=== PATIENT | female | born 1955 | race Caucasian/White ===

== ENCOUNTER 2023-01-14 03:18 | Emergency (ER) | payer OTHER ==
--- OUTSIDE RECORDS SUMMARY | 2023-01-14 03:25 | XMS REPORT | Continuity of Care Document ---
:[address] [facility] t Address [address] [facility] [address] [place] [address] Care Team Providers Name Role Phone Jonh Michelle MD Primary Care Physician Troy Tripathi MD Attending Clinician AMBREEN_FARDESTINEY Attending Clinician Unavailable AMBREEN_SOPHIA Admitting Clinician Unavailable Payers Payer Name Policy Type Policy Number Effective Date Expiration Date S ource Problems Condition Condition Condition Status Onset Resolution Last Treating Co mments Source Name Details Category Date Date Treatment Clinician Date Hypothyroi Hypothyroi Problem Active 2017-0 [place] [facility] Hypertensi Hypertensi Problem Active 2018-0 [place] ve ve 805 da disorder Disorder 00:00: [facility] Allergies, Adverse Reactions, Alerts This patient has no known allergies or adverse reactions. Social History Social Habit Start Date Stop Date Quantity Comments Source Gender [facility] Sexual orientation [facility] History [facility]ism Alcohol Std Drinks Hospit al History [facility] Alcohol Binge Hospital Alcohol intake 2022-03-23 2022-03-23 Lifetime [facility] 00:00:00 00:00:00 non-drinker Hospital (finding) History of Social 2022-03-23 2022-03-[address] function 00:00:00 00:00:00 Hospital Tobacco use and 2022-03-23 2022-03-23 Smokeless [facility]ism exposure 00:00:00 00:00:00 tobacco non-user Hospital History SDDE 2019-08-07 2019-08-07 1 [facility] Alcohol Frequency 00:00:00 00:00:00 Hospita l Sex Ass[birth year] [facility] 00:00:00 00:00:00 Hospital Smoking Status Start Date Stop Date Source Never smoked tobacco [facility] Medications Ordered Filled Start Stop Current Ordering Indication Dosage Frequency Signature Comments Components Source Medication Medication Date Date Medication? Clinician (SIG) Name Name levothyroxi 2022-0 Yes 100ug QD Take 100 M ethodi ne 9-[address] (SYNTHROID) 10:44: mouth Hospi ta 100 mcg 10 daily. l tablet losartan 2022-0 Yes 25mg QD Take 25 mg Met hodi (COZAAR) 25 9-[address] MG tablet 10:44: daily. Hospit a 10 l atorvastati 2022-0 Yes 20mg QD Take 20 mg Methodi n (LIPITOR) 9-[address] 20 mg 10:44: daily. Hospita tablet 10 Default OP l ins cholecalcif 2022-0 Yes 1000U QD Take 1,000 Methodi kelly, 9-[address] vitamin D3, 10:44: mouth Hospi ta 25 mcg 10 daily. l (1,000 unit) capsule ascorbic 2022-0 Yes 500mg QD Take 500 Meth bobby acid, 9-[address] vitamin C, 10:44: mouth Hospit a (VITAMIN C) 10 daily. l 500 MG tablet levothyroxi 2022-0 Yes 100ug QD Take 100 M ethodi ne 9-[address] (SYNTHROID) 10:44: mouth Hospi ta 100 mcg 10 daily. l tablet losartan 2022-0 Yes 25mg QD Take 25 mg Met hodi (COZAAR) 25 9-[address] MG tablet 10:44: daily. Hospit a 10 l atorvastati 2022-0 Yes 20mg QD Take 20 mg Methodi n (LIPITOR) 9-[address] 20 mg 10:44: daily. Hospita tablet 10 Default OP l ins cholecalcif 2022-0 Yes 1000U QD Take 1,000 Methodi kelly, 9-[address] vitamin D3, 10:44: mouth Hospi ta 25 mcg 10 daily. l (1,000 unit) capsule ascorbic 2022-0 Yes 500mg QD Take 500 Meth bobby acid, 9-[address] vitamin C, 10:44: mouth Hospit a (VITAMIN C) 10 daily. l 500 MG tablet levothyroxi 2022-0 Yes 100ug QD Take 100 M ethodi ne 9-[address] (SYNTHROID) 10:44: mouth Hospi ta 100 mcg 10 daily. l tablet losartan 2022-0 Yes 25mg QD Take 25 mg Met hodi (COZAAR) 25 9-[address] MG tablet 10:44: daily. Hospit a 10 l atorvastati 2022-0 Yes 20mg QD Take 20 mg Methodi n (LIPITOR) 9-[address] 20 mg 10:44: daily. Hospita tablet 10 Default OP l ins cholecalcif 2022-0 Yes 1000U QD Take 1,000 Methodi kelly, 9-[address] vitamin D3, 10:44: mouth Hospi ta 25 mcg 10 daily. l (1,000 unit) capsule ascorbic 2022-0 Yes 500mg QD Take 500 Meth bobby acid, 9-[address] vitamin C, 10:44: mouth Hospit a (VITAMIN C) 10 daily. l 500 MG tablet levothyroxi 2022-0 Yes 100ug QD Take 100 M ethodi ne 9-[address] (SYNTHROID) 10:44: mouth Hospi ta 100 mcg 10 daily. l tablet losartan 2022-0 Yes 25mg QD Take 25 mg Met hodi (COZAAR) 25 9-[address] MG tablet 10:44: daily. Hospit a 10 l atorvastati 2022-0 Yes 20mg QD Take 20 mg Methodi n (LIPITOR) 9-[address] 20 mg 10:44: daily. Hospita tablet 10 Default OP l ins cholecalcif 2022-0 Yes 1000U QD Take 1,000 Methodi kelly, 9-[address] vitamin D3, 10:44: mouth Hospi ta 25 mcg 10 daily. l (1,000 unit) capsule ascorbic 2022-0 Yes 500mg QD Take 500 Meth bobby acid, 9-[address] vitamin C, 10:44: mouth Hospit a (VITAMIN C) 10 daily. l 500 MG tablet levothyroxi 2022-0 Yes 100ug QD Take 100 M ethodi ne 9-[address] (SYNTHROID) 10:44: mouth Hospi ta 100 mcg 10 daily. l tablet losartan Yes 25mg QD Take 25 mg Met hodi (COZAAR) [address] MG tablet 10:44: daily. Hospit a 10 l atorvastati Yes 20mg QD Take 20 mg Methodi n (LIPITOR) [address] 20 mg 10:44: daily. Hospita tablet 10 Default OP l ins cholecalcif Yes 1000U QD Take 1,000 Methodi kelly, 9-22 Units by vitamin D3, 10:44: mouth Hospi ta 25 mcg 10 daily. l (1,000 unit) capsule ascorbic Yes 500mg QD Take 500 Meth bobby acid, 9-[address] vitamin C, 10:44: mouth Hospit a (VITAMIN C) 10 daily. l 500 MG tablet Zyrtec 5 mg Zyrtec 5 mg 2018-07 No 1 Q1D Zyrtec 5 [place] tablet Take tablet Take 2-09 mg tablet da 1 tablet 1 tablet 00:00: Take 1 Epi scop every day every day 00 tablet al by oral by oral every day Heal th route. route. by oral Outreac route. h Program ergocalcife ergocalcife No ergocalcif [place] rol rol kelly da (vitamin (vitamin (vitamin Epi scop D2) 1,250 D2) 1,250 D2) 1,250 al mcg (50,000 mcg (50,000 mcg H ealth unit) unit) (50,000 Outreac capsule capsule unit) h TAKE 1 TAKE 1 capsule Program CAPSULE BY CAPSULE BY TAKE 1 MOUTH ONE MOUTH ONE CAPSULE BY TIME PER TIME PER MOUTH ONE WEEK WEEK TIME PER WEEK levothyroxi levothyroxi No levothyrox [place] ne 112 mcg ne 112 mcg ine 112 da tablet TAKE tablet TAKE mcg tablet [facility] 1 TABLET BY 1 TABLET BY TAKE 1 al MOUTH EVERY MOUTH EVERY TABLET BY Health DAY DAY MOUTH Outreac EVERY DAY h Program losartan 25 losartan 25 No losartan [place] mg tablet mg tablet 25 mg da TAKE 1 TAKE 1 tablet [facility] TABLET BY TABLET BY TAKE 1 al MOUTH EVERY MOUTH EVERY TABLET BY Health DAY DAY MOUTH Outreac EVERY DAY h Program Immunizations Ordered Immunization Filled Immunization Date Status Commen ts Source Name Name Tdap Tdap 2019-06-09 Completed [employer] 16:43:00 [facility] Tdap Tdap 2008-07-02 Completed [employer] 00:00:00 [facility] Vital Signs Vital Name Observation Time Observation Value Comments Source BP Diastolic 2020-05-03 00:00:00 82 mm[Hg] [place] [facility] Height 2020-05-03 00:00:00 66 [in_i] [place] [facility] BMI (Body Mass 2020-05-03 00:00:00 31.8 kg/m2 [place]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) [facility] BP Systolic 2020-05-03 00:00:00 138 mm[Hg] [place] [facility] Body Weight 2020-05-03 00:00:00 3152 [oz_av] [place] [facility] Height 2019-12-18 00:00:00 66 [in_i] [place] [facility] BP Diastolic 2019-12-01 00:00:00 70 mm[Hg] [place] [facility] Height 2019-12-01 00:00:00 66 [in_i] [place] [facility] BMI (Body Mass 2019-12-01 00:00:00 33.1 kg/m2 [place]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) [facility] BP Systolic 2019-12-01 00:00:00 110 mm[Hg] [place] [facility] Body Weight 2019-12-01 00:00:00 3280 [oz_av] [place] [facility] BP Diastolic 2019-09-15 00:00:00 82 mm[Hg] [place] [facility] Height 2019-09-15 00:00:00 66 [in_i] [place] [facility] BMI (Body Mass 2019-09-15 00:00:00 32.8 kg/m2 [place]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) [facility] BP Systolic 2019-09-15 00:00:00 141 mm[Hg] [place] [facility] Body Weight 2019-09-15 00:00:00 203.1 [lb_av] [place] [facility] BP Diastolic 2019-08-11 00:00:00 82 mm[Hg] [place] [facility] Height 2019-08-11 00:00:00 66 [in_i] [place] [facility] BMI (Body Mass 2019-08-11 00:00:00 32.9 kg/m2 [place]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) [facility] BP Systolic 2019-08-11 00:00:00 142 mm[Hg] [place] [facility] Body Weight 2019-08-11 00:00:00 204 [lb_av] [place] [facility] BP Diastolic 2019-06-09 00:00:00 76 mm[Hg] [place] [facility] Height 2019-06-09 00:00:00 66 [in_i] [place] [facility] BMI (Body Mass 2019-06-09 00:00:00 32.8 kg/m2 [facility]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) [facility] BP Systolic 2019-06-09 00:00:00 124 mm[Hg] [place] [facility] Body Weight 2019-06-09 00:00:00 203.5 [lb_av] [place] [facility] BP Diastolic 2019-02-25 00:00:00 80 mm[Hg] [place] [facility] Height 2019-02-25 00:00:00 66 [in_i] [place] [facility] BMI (Body Mass 2019-02-25 00:00:00 31.4 kg/m2 [facility]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) [facility] BP Systolic 2019-02-25 00:00:00 122 mm[Hg] [place] [facility] Body Weight 2019-02-25 00:00:00 194.6 [lb_av] [place] [facility] BP Diastolic 2019-02-17 00:00:00 90 mm[Hg] [place] [facility] Height 2019-02-17 00:00:00 66 [in_i] [place] [facility] BMI (Body Mass 2019-02-17 00:00:00 31.3 kg/m2 [place]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) [facility] BP Systolic 2019-02-17 00:00:00 140 mm[Hg] [place] [facility] Body Weight 2019-02-17 00:00:00 194 [lb_av] [place] [facility] BP Diastolic 2018-09-23 00:00:00 83 mm[Hg] [place] [facility] Height 2018-09-23 00:00:00 66 [in_i] [place] [facility] BMI (Body Mass 2018-09-23 00:00:00 32.7 kg/m2 [place]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 pressure Heart rate 2022-03-23 15:43:00 53 /min [facility] Body temperature 2022-03-23 15:43:[address] [facility] [place] [place] Respiratory rate 2022-03-23 15:43:00 18 /min [facility] [place] [place] Body weight 2022-03-23 15:43:00 87.952 kg [facility] BMI 2022-03-23 15:43:00 30.83 kg/m2 [facility] Oxygen saturation in 2022-03-23 15:43:00 96 /min [facility] Arterial blood by Pulse oximetry Procedures Procedure Date / Time Performing Clinician Source Performed CBC WITH PLATELET AND 2022-03-27 16:39:00 [facility]FFER[facility] CBC WITH PLATELET AND 2022-03-27 16:39:00 [facility] DIFFERENTIAL MAMMO, screening, 2020-05-03 00:00:00 [employer] [facility]rianism digital, bilateral Health Outrea ch Program US, thyroid 2019-12-01 00:00:00 [employer] [facility] ELECTROCARDIOGRAM, 2018-09-23 00:00:00 [employer] [facility] COMPLETE Health Outreach Program Total Hysterectomy 2013-04-01 00:00:00 [employer] [facility]reach [facility] Eye Surgery [employer] [facility] Tubal Ligation [employer] [facility] Plan of Care Planned Activity Planned Date Details Comments Source Future Scheduled 2022-12-17 Screening for [facility] Test 05:58:15 malignant neoplasm of colon (procedure) [code = 981442149] Future Scheduled 2022-12-17 [facility] Test 05:58:15 malignant neoplasm of colon (procedure) [code = 711539246] Future Scheduled 2022-12-17 [facility] for [facility] Test 05:58:15 malignant neoplasm of colon (procedure) [code = 372240574] Future Scheduled 2022-12-17 COVID-19 VACCINE (#1) [facility] Test 05:58:15 [code = COVID-19 VACCINE (#1)] Future Scheduled 2022-12-17 Hepatitis C screening [facility] Test 05:58:15 (procedure) [code = 167434811] Future Scheduled 2022-12-17 BREAST CANCER [facility] Test 05:58:15 SCREENING [code = BREAST CANCER SCREENING] Future Scheduled 2022-12-17 [facility] Test 05:58:15 malignant neoplasm of colon (procedure) [code = 298943007] Future Scheduled 2022-12-17 [facility]ening for [facility] Test 05:58:15 malignant neoplasm of colon (procedure) [code = 769577953] Future Scheduled 2022-12-17 SHINGLES VACCINES (1 Met [facility] Test 05:58:15 of 2) [code = SHINGLES VACCINES (1 of 2)] Future Scheduled 2022-12-17 65+ [facility]AL [facility] Test 05:58:15 VACCINE (1 - PCV) [code = 65+ PNEUMOCOCCAL VACCINE (1 - PCV)] Future Scheduled 2022-12-17 INFLUENZA VACCINE Method [facility] Hospital Test 05:58:15 [code = INFLUENZA VACCINE] Future Scheduled 2022-06-18 COVID-19 VACCINE (#1) Me [facility] Hospital Test 05:22:10 [code = COVID-19 VACCINE (#1)] Future Scheduled 2022-06-18 Hepatitis C screening [facility] Test 05:22:10 (procedure) [code = 318503635] Future Scheduled 2022-06-18 BREAST CANCER [facility] Test 05:22:10 SCREENING [code = BREAST CANCER SCREENING] Future Scheduled 2022-06-18 COLONOSCOPY SCREENING [facility] Test 05:22:10 [code = COLONOSCOPY SCREENING] Future Scheduled 2022-06-18 SHINGLES VACCINES (1 Met [facility] Test 05:22:10 of 2) [code = SHINGLES VACCINES (1 of 2)] Future Scheduled 2022-06-18 65+ PNEUMOCOCCAL [facility] Hospital Test 05:22:10 VACCINE (1 - PCV) [code = 65+ PNEUMOCOCCAL VACCINE (1 - PCV)] Future Scheduled 2022-06-18 INFLUENZA VACCINE Method [facility] Hospital Test 05:22:10 [code = INFLUENZA VACCINE] Future Scheduled 2022-06-18 COVID-19 VACCINE (#1) [facility] Hospital Test 05:22:10 [code = COVID-19 VACCINE (#1)] Future Scheduled 2022-06-18 Hepatitis C screening [facility] Test 05:22:10 (procedure) [code = 707084528] Future Scheduled 2022-06-18 BREAST CANCER [facility] Test 05:22:10 SCREENING [code = BREAST CANCER SCREENING] Future Scheduled 2022-06-[address] [facility] Hospital Test 05:22:10 [code = COLONOSCOPY SCREENING] Future Scheduled 2022-06-18 SHINGLES VACCINES (1 Met [facility] Test 05:22:10 of 2) [code = SHINGLES VACCINES (1 of 2)] Future Scheduled 2022-06-18 65+ PNEUMOCOCCAL [facility] Hospital Test 05:22:10 VACCINE (1 - PCV) [code = 65+ PNEUMOCOCCAL VACCINE (1 - PCV)] Future Scheduled 2022-06-18 INFLUENZA VACCINE Method is Hospital Test 05:22:10 [code = INFLUENZA VACCINE] Future Scheduled 2022-06-18 COVID-19 VACCINE (#1) Me [facility] Hospital Test 05:22:10 [code = COVID-19 VACCINE (#1)] Future Scheduled 2022-06-18 Hepatitis C screening [facility] Hospital Test 05:22:10 (procedure) [code = 317603616] Future Scheduled 2022-06-18 BREAST CANCER [facility] Test 05:22:10 SCREENING [code = BREAST CANCER SCREENING] Future Scheduled 2022-06-[address] [facility] Hospital Test 05:22:10 [code = COLONOSCOPY SCREENING] Future Scheduled 2022-06-18 SHINGLES VACCINES (1 Met [facility] Test 05:22:10 of 2) [code = SHINGLES VACCINES (1 of 2)] Future Scheduled 2022-06-18 65+ PNEUMOCOCCAL [facility] Hospital Test 05:22:10 VACCINE (1 - PCV) [code = 65+ PNEUMOCOCCAL VACCINE (1 - PCV)] Future Scheduled 2022-06-18 INFLUENZA VACCINE Method [facility] Hospital Test 05:22:10 [code = INFLUENZA VACCINE] Future Scheduled 2022-06-18 COVID-19 VACCINE (#1) Me [facility] Hospital Test 05:22:10 [code = COVID-19 VACCINE (#1)] Future Scheduled 2022-06-18 Hepatitis C screening [facility] Hospital Test 05:22:10 (procedure) [code = 122044947] Future Scheduled 2022-06-18 BREAST CANCER [facility] Test 05:22:10 SCREENING [code = BREAST CANCER SCREENING] Future Scheduled 2022-06-18 COLONOSCOPY SCREENING [facility] Test 05:22:10 [code = COLONOSCOPY SCREENING] Future Scheduled 2022-06-18 SHINGLES VACCINES (1 Met [facility] Test 05:22:10 of 2) [code = SHINGLES VACCINES (1 of 2)] Future Scheduled 2022-06-18 65+ [facility]OCOCCAL [facility] Test 05:22:10 VACCINE (1 - PCV) [code = 65+ PNEUMOCOCCAL VACCINE (1 - PCV)] Future Scheduled 2022-06-18 INFLUENZA VACCINE Method ist Hospital Test 05:22:10 [code = INFLUENZA VACCINE] Future Scheduled 2020-06-18 TSH + free T4, serum [place] Test 00:00:00 [code = TSH + free T4, [facility] serum] Outreach Progra m Future Scheduled 2020-06-18 CBC w/ auto diff [code [facility] [place] Test 00:00:00 = CBC w/ auto diff] [facility] Outreach Progra m Encounters Start End Encounter Admission Attending Care Care Encounter Source Date/Time Date/Time Type Type Clinicians Facility Department ID 2022-03-23 2022-03-23 Office Bhumi, 1.2.840.1 [id number] Methodi 10:40:00 11:09:35 Visit [place] [address]34.1.[address] 3.430.2.7 Hospit a .3.746708 l .8 2022-03-23 2022-03-23 Office Bhumi, 1.2.840.1 [id number] Methodi 10:40:00 11:09:35 Visit [place] [address]19.1.[address] 3.430.2.7 Hospit a .3.729250 l .8 2022-03-23 2022-03-23 Travel 1.2.840.1 [id number] [id number] Methodi 00:00:00 00:00:[address] 3.430.2.7 0.2.7.3.698 Ho spita .3.011413 084.8 l .8 2022-03-23 2022-03-23 Travel 1.2.840.1 1.2.284.488 [id number] Methodi 00:00:00 00:00:[address] 3.430.2.7 0.2.7.3.698 Ho spita .3.171140 084.8 l .8 2022-02-03 2022-02-03 Orders Tripathi, 1.2.840.1 [id number] Methodi 00:00:00 00:00:00 Only [place] [address]10.1.[address] 3.430.2.7 Hospit a .3.987035 l .8 2022-02-03 2022-02-03 Orders Tripathi, 1.2.840.1 [id number] Methodi 00:00:00 00:00:00 Only [place] [address]241.1.[address] 3.430.2.7 Hospit a .3.384792 l .8 2021-08-19 2021-08-19 Orders Tripathi, 1.2.840.1 [id number] Methodi 00:00:00 00:00:00 Only [place] [address]32.1.[address] 3.430.2.7 Hospit a .3.728881 l .8 2020-09-20 2020-09-20 Outpatient TRIPATHI, [facility] [id number] [address] [place] [address] 00:00:00 00:00:00 TROY [address] 2020-07-26 2020-07-26 Outpatient AMBREEN_[place] [address] [place] 01:02:00 01:02:00 DESTINEY 0125 da [facility] 2020-06-21 2020-06-21 Outpatient AMBREEN_F[place] [address] [place] 01:02:00 01:02:00 HANA 1221 da [facility] 2020-05-17 2020-05-17 Outpatient AMBREEN_[place] [address] [place] 01:02:00 01:02:00 HANA 1116 da [facility] 2020-05-03 2020-05-03 Outpatient AMBREEN_F[place] [address] [place] 11:23:00 11:23:00 HANA 1102 da [facility] 2020-05-03 2020-05-03 [facility] [place] [id number] M [place] 00:00:00 00:00:00 Edda Cortez MD: 1700 [facility]ism [facility] [place] [address] h , Ph. Program 2020-04-12 2020-04-12 Outpatient AMBREEN_FAR MEHOP [facility] 68 [place] 01:02:00 01:02:00 HANA 1012 da [facility] 2020-03-16 2020-03-16 Outpatient BHUMI [facility] [id number] 199 [place] 00:00:00 00:00:00 TROY [address] 2020-03-15 2020-03-15 Outpatient AMBREEN_FAR MEHOP [facility] 686 [place] 12:28:00 12:28:00 HANA 0914 da [facility] 2020-03-07 2020-03-07 Outpatient AMBREEN_FAR MEHOP [facility] 686 [place] 12:09:00 12:09:00 HANA 0906 da [facility] 2020-03-02 2020-03-02 Outpatient BHUMI [facility] [id number] [address] [place] [address] 00:00:00 00:00:00 TROY [address] 2020-02-23 2020-02-23 Outpatient AMBREEN_FAR MEHOP [facility] 686 [place] 09:42:00 09:42:00 HANA 0824 [facility] 2020-01-11 2020-01-11 Outpatient AMBREEN_FAR MEHOP [facility] 68 [place] 12:09:00 12:09:00 HANA 0712 da [facility] 2019-12-18 2019-12-18 Outpatient AMBREEN_FAR MEHOP [facility] 686 [place] 02:29:00 02:29:00 HANA 0618 [facility] 2019-12-18 2019-12-18 Sophia [facility] [place] - [id number] M at[place] 00:00:00 00:00:00 Edda Cortez MD: [id number] Zoroastrianism Epis coppersmith helper [place] 59 HOP - M[facility]OP [facility] [address] [place] Program [phone] , Ph. 2019-12-10 2019-12-10 Outpatient AMBREEN_FAR MEHOP MEHOP [place] 02:55:00 02:55:00 HANA 0610 da [facility] 2019-12-07 2019-12-07 Outpatient AMBREEN_FAR MEHOP ME[facility]OP [place] 12:11:00 12:11:00 HANA 0607 da [facility] 2019-12-01 2019-12-01 Outpatient AMBREEN_FAR MEHOP MEHOP [place] 11:56:00 11:56:00 HANA 0601 [facility] 2019-12-01 2019-12-01 Sophia [facility] [place] - [id number] M at[place]or 00:00:00 00:00:00 Edda Cortez MD: 1700 [facility]oroastrianism [facility] Jigar [facility] [place] [address] h , Ph. Program 2019-11-30 2019-11-30 Outpatient AMBREEN_FAR MEHOP MEHOP [place] 04:37:00 04:37:00 HANA 0531 da [facility] 2019-10-19 2019-10-19 Outpatient AMBREEN_FAR MEHOP ME[facility] 6 [place] 12:07:00 12:07:00 HANA 0419 [facility] 2019-09-15 2019-09-15 Outpatient AMBREEN_FAR MEHOP [facility] 6 [place] 05:10:00 05:10:00 HANA 0316 [facility] 2019-09-15 2019[facility]09[facility] [place] [facility] [id number] 00:00:00 00:00:00 Edda Cortez MD: 1700 [facility]ism [facility] [place] [phone] h , Ph. Program 2019-09-08 2019-09-08 Outpatient AMBREEN_WANDY [facility] 68 [place] 12:08:00 12:08:00 HANA 0309 da [facility] 2019-08-27 2019-08-27 Outpatient AMBREEN_WANDY [facility] 68 [place] 02:21:00 02:21:00 HANA 0226 da [facility] 2019-08-25 2019-08-25 Outpatient [facility] [address] 11:06:00 11:06:00 HANA 0224 [facility] 2019-08-11 2019-08-11 Outpatient [facility] [address] [place] 11:19:00 11:19:00 HANA 0210 [facility] 2019-08-11 2019-08-11 [facility] [id number] [place] 00:00:00 00:00:00 Edda Cortez MD: [id number] [facility], [facility] [phone] h , Ph. Program 2019-08-06 2019-08-06 Outpatient [facility] [place] 06:06:00 06:06:00 HANA [facility] 2019-06-09 2019-06-09 [facility] [id number] M atagor 00:00:00 00:00:00 Edda Cortez MD: 1700 [facility] [place] [facility] hodan Crane, [facility] [phone] h , Ph. Program 2019-02-25 2019-02-25 [facility] - [id number] M at[place]or 00:00:00 00:00:00 Edda Cortez MD: [id number] Zoroastrianism Epis coppersmith helper [place] [address] [facility], [facility] [address], [facility] Program [address] , Ph. 2019-02-17 2019-02-17 Sophia STEWART [place] - [id number] M at[place] 00:00:00 00:00:00 Edda Cortez MD: 1700 Zoroastrianism Episc [facility], [place] [phone] h , Ph. Program 2018-11-11 2018-11-11 Sophia STEWART [place] - [id number] M at[place]or 00:00:00 00:00:00 Edda Cortez MD: 1700 Z[facility]astrianism [facility], [address] [address] Progr am , Ph. 2018-09-23 2018-09-23 Sophia STEWART [place] - [id number] M at[place]or 00:00:00 00:00:00 Edda Cortez MD: 1700 Zoroastrianism Episc op [address] [address] Progr am , Ph. Results Test Description Test Time Test Comments Results Result Comments Source CBC with platelet and differential 2022-03-28 03:40:00 Test Item Value Reference Range Interpretation Comme nts WBC (test code = See_Comment [Automated message] The 6690-2) system which nerated this result tra nsmitted reference range : 3.8 - 10.8 Thousand/u L. The reference range was not used to interpr et this result as constance l/abnormal. RBC (test code = See_Comment [Automated message] The 789-8) system which ge nerated this result tra nsmitted reference range : 3.80 - 5.10 Million/uL . The reference range was not used to interpr et this result as constance l/abnormal. HGB (test code = 12.6 g/dL 11.7-15.5 718-7) HCT (test code = 38.0 % 35.0-45.0 4544-3) MCV (test code = 89.6 fL 80.0-100.0 787-2) MCH (test code = 29.7 pg 27.0-33.0 785-6) MCHC (test code = 33.2 g/dL 32.0-36.0 786-4) RDW (test code = 12.8 % 11.0-15.0 788-0) Platelet count (test See_Comment [Autom ated message] The code = 777-3) system which g enerated this result tra nsmitted reference range : 140 - 400 Thousand/uL. Th e reference range was not u sed to interpret this result as normal/abnormal . MPV (test code = 11.8 fL 7.5-12.5 776-5) Neutrophils, absolute See_Comment [Auto mated message] The (test code = 751-8) system [employer] generated this result tra nsmitted reference range : 1,500 - 7,800 cells/uL. The reference range was not used to interpr et this result as constance l/abnormal. Lymphocytes, absolute See_Comment [Auto mated message] The (test code = 731-0) system w [employer] generated this result tra nsmitted reference range : 850 - 3,900 cells/uL. The reference range was not used to interpr et this result as constance l/abnormal. Monocytes, absolute See_Comment [Automa gina message] The (test code = 742-7) system w [employer] generated this result tra nsmitted reference range : 200 - 950 cells/uL. The r eference range was not u sed to interpret this result as normal/abnormal . Eosinophils, absolute See_Comment [Auto mated message] The (test code = 711-2) system w [employer] generated this result tra nsmitted reference range : 15 - 500 cells/uL. The r eference range was not u sed to interpret this result as normal/abnormal . Basophils, absolute See_Comment [Automa gina message] The (test code = 704-7) system w [employer] generated this result tra nsmitted reference range : 0 - 200 cells/uL. The r eference range was not u sed to interpret this result as normal/abnormal . Neutrophils (test code 48.7 % = 770-8) Lymphocytes (test code 40.2 % = 736-9) Monocytes (test code = 8.7 % 5905-5) Eosinophils (test code 1.7 % = 713-8) Basophils + RC (test 0.7 % code = 706-2) RAC (test code = RAC) Performing Organization Information: Site ID: RGA Name: [facility] Lab Address: [address] [place] [id number] Director: Seamus Escoto [facility] with platelet and [id number] 03:40:00 Test Item Value Reference Range Interpretation Comments WBC (test code = See_Comment [Automated 5890-2) message] The system which generated this result transmitted reference range : 3.8 - 10.8 Thousand/uL. Th e reference range was not used to interpret this result as normal/abnormal . RBC (test code = See_Comment [Automated 789-8) message] The system which generated this result transmitted reference range : 3.80 - 5.10 Million/uL. The reference range was not used to interpret this result as normal/abnormal . HGB (test code = 12.6 g/dL 11.7-15.5 718-7) HCT (test code = 38.0 % 35.0-45.0 4544-3) MCV (test code = 89.6 fL 80.0-100.0 787-2) MCH (test code = 29.7 pg 27.0-33.0 785-6) MCHC (test code = 33.2 g/dL 32.0-36.0 786-4) RDW (test code = 12.8 % 11.0-15.0 788-0) Platelet count See_Comment [Automated (test code = message] The 777-3) system which generated this result transmitted reference range : 140 - 400 Thousand/uL. Th e reference range was not used to interpret this result as normal/abnormal . MPV (test code = 11.8 fL 7.5-12.5 776-5) Neutrophils, See_Comment [Automated absolute (test message] The code = 751-8) system which generated this result transmitted reference range : 1,500 - 7,800 cells/uL. The reference range was not used to interpret this result as normal/abnormal . Lymphocytes, See_Comment [Automated absolute (test message] The code = 731-0) system which generated this result transmitted reference range : 850 - 3,900 cells/uL. The reference range was not used to interpret this result as normal/abnormal . Monocytes, See_Comment [Automated absolute (test message] The code = 742-7) system which generated this result transmitted reference range : 200 - 950 cells/uL. The reference range was not used to interpret this result as normal/abnormal . Eosinophils, See_Comment [Automated absolute (test message] The code = 711-2) system which generated this result transmitted reference range : 15 - 500 cells/uL. The reference range was not used to interpret this result as normal/abnormal . Basophils, See_Comment [Automated absolute (test message] The code = 704-7) system which generated this result transmitted reference range : 0 - 200 cells/u L. The reference range was not used to interpr et this result as normal/abnormal . Neutrophils (test 48.7 % code = 770-8) Lymphocytes (test 40.2 % code = 736-9) Monocytes (test 8.7 % code = 5905-5) Eosinophils (test 1.7 % code = 713-8) Basophils + RC 0.7 % (test code = 706-2) RAC (test code = Performing RAC) Organization Information: Site ID: RGA Name: [facility] Lab Address: [address] [place] [id number] Director: Seamus Escoto [facility] with platelet and [id number] 03:40:00 Test Item Value Reference Range Interpretation Comments WBC (test code = See_Comment [Automated 9490-2) message] The system which generated this result transmitted reference range : 3.8 - 10.8 Thousand/uL. Th e reference range was not used to interpret this result as normal/abnormal . RBC (test code = See_Comment [Automated 859-8) message] The system which generated this result transmitted reference range : 3.80 - 5.10 Million/uL. The reference range was not used to interpret this result as normal/abnormal . HGB (test code = 12.6 g/dL 11.7-15.5 718-7) HCT (test code = 38.0 % 35.0-45.0 4544-3) MCV (test code = 89.6 fL 80.0-100.0 787-2) MCH (test code = 29.7 pg 27.0-33.0 785-6) MCHC (test code = 33.2 g/dL 32.0-36.0 786-4) RDW (test code = 12.8 % 11.0-15.0 788-0) Platelet count See_Comment [Automated (test code = message] The 777-3) system which generated this result transmitted reference range : 140 - 400 Thousand/uL. Th e reference range was not used to interpret this result as normal/abnormal . MPV (test code = 11.8 fL 7.5-12.5 776-5) Neutrophils, See_Comment [Automated absolute (test message] The code = 751-8) system which generated this result transmitted reference range : 1,500 - 7,800 cells/uL. The reference range was not used to interpret this result as normal/abnormal . Lymphocytes, See_Comment [Automated absolute (test message] The code = 731-0) system which generated this result transmitted reference range : 850 - 3,900 cells/uL. The reference range was not used to interpret this result as normal/abnormal . Monocytes, See_Comment [Automated absolute (test message] The code = 742-7) system which generated this result transmitted reference range : 200 - 950 cells/uL. The reference range was not used to interpret this result as normal/abnormal . Eosinophils, See_Comment [Automated absolute (test message] The code = 711-2) system which generated this result transmitted reference range : 15 - 500 cells/uL. The reference range was not used to interpret this result as normal/abnormal . Basophils, See_Comment [Automated absolute (test message] The code = 704-7) system which generated this result transmitted reference range : 0 - 200 cells/u L. The reference range was not used to interpr et this result as normal/abnormal . Neutrophils (test 48.7 % code = 770-8) Lymphocytes (test 40.2 % code = 736-9) Monocytes (test 8.7 % code = 5905-5) Eosinophils (test 1.7 % code = 713-8) Basophils + RC 0.7 % (test code = 706-2) RAC (test code = Performing RAC) Organization Information: Site ID: RGA Name: [facility] Lab Address: [address] [place] [id number] Director: Seamus Escoto [facility] with platelet and [id number] 03:40:00 Test Item Value Reference Range Interpretation Comments WBC (test code = See_Comment [Automated 1690-2) message] The system which generated this result transmitted reference range : 3.8 - 10.8 Thousand/uL. Th e reference range was not used to interpret this result as normal/abnormal . RBC (test code = See_Comment [Automated 679-8) message] The system which generated this result transmitted reference range : 3.80 - 5.10 Million/uL. The reference range was not used to interpret this result as normal/abnormal . HGB (test code = 12.6 g/dL 11.7-15.5 718-7) HCT (test code = 38.0 % 35.0-45.0 4544-3) MCV (test code = 89.6 fL 80.0-100.0 787-2) MCH (test code = 29.7 pg 27.0-33.0 785-6) MCHC (test code = 33.2 g/dL 32.0-36.0 786-4) RDW (test code = 12.8 % 11.0-15.0 788-0) Platelet count See_Comment [Automated (test code = message] The 777-3) system which generated this result transmitted reference range : 140 - 400 Thousand/uL. Th e reference range was not used to interpret this result as normal/abnormal . MPV (test code = 11.8 fL 7.5-12.5 776-5) Neutrophils, See_Comment [Automated absolute (test message] The code = 751-8) system which generated this result transmitted reference range : 1,500 - 7,800 cells/uL. The reference range was not used to interpret this result as normal/abnormal . Lymphocytes, See_Comment [Automated absolute (test message] The code = 731-0) system which generated this result transmitted reference range : 850 - 3,900 cells/uL. The reference range was not used to interpret this result as normal/abnormal . Monocytes, See_Comment [Automated absolute (test message] The code = 742-7) system which generated this result transmitted reference range : 200 - 950 cells/uL. The reference range was not used to interpret this result as normal/abnormal . Eosinophils, See_Comment [Automated absolute (test message] The code = 711-2) system which generated this result transmitted reference range : 15 - 500 cells/uL. The reference range was not used to interpret this result as normal/abnormal . Basophils, See_Comment [Automated absolute (test message] The code = 704-7) system which generated this result transmitted reference range : 0 - 200 cells/u L. The reference range was not used to interpr et this result as normal/abnormal . Neutrophils (test 48.7 % code = 770-8) Lymphocytes (test 40.2 % code = 736-9) Monocytes (test 8.7 % code = 5905-5) Eosinophils (test 1.7 % code = 713-8) Basophils + RC 0.7 % (test code = 706-2) RAC (test code = Performing RAC) Organization Information: Site ID: RGA Name: [facility] Lab Address: [address] [place] [phone] Director: Seamus Escoto [facility] with platelet and [id number] 03:40:00 Test Item Value Reference Range Interpretation Comments WBC (test code = 4.2 See_Comment [Automated 4430-2) message] The system which generated this result transmitted reference range : 3.8 - 10.8 Thousand/uL. Th e reference range was not used to interpret this result as normal/abnormal . RBC (test code = 4.24 See_Comment [Automated 076-8) message] The system which generated this result transmitted reference range : 3.80 - 5.10 Million/uL. The reference range was not used to interpret this result as normal/abnormal . HGB (test code = 12.6 g/dL 11.7-15.5 718-7) HCT (test code = 38.0 % 35.0-45.0 4544-3) MCV (test code = 89.6 fL 80.0-100.0 787-2) MCH (test code = 29.7 pg 27.0-33.0 785-6) MCHC (test code = 33.2 g/dL 32.0-36.0 786-4) RDW (test code = 12.8 % 11.0-15.0 788-0) Platelet count 200 See_Comment [Automated (test code = message] The 777-3) system which generated this result transmitted reference range : 140 - 400 Thousand/uL. Th e reference range was not used to interpret this result as normal/abnormal . MPV (test code = 11.8 fL 7.5-12.5 776-5) Neutrophils, 2045 See_Comment [Automated absolute (test message] The code = 751-8) system which generated this result transmitted reference range : 1,500 - 7,800 cells/uL. The reference range was not used to interpret this result as normal/abnormal . Lymphocytes, 1688 See_Comment [Automated absolute (test message] The code = 731-0) system which generated this result transmitted reference range : 850 - 3,900 cells/uL. The reference range was not used to interpret this result as normal/abnormal . Monocytes, 365 See_Comment [Automated absolute (test message] The code = 742-7) system which generated this result transmitted reference range : 200 - 950 cells/uL. The reference range was not used to interpret this result as normal/abnormal . Eosinophils, 71 See_Comment [Automated absolute (test message] The code = 711-2) system which generated this result transmitted reference range : 15 - 500 cells/uL. The reference range was not used to interpret this result as normal/abnormal . Basophils, 29 See_Comment [Automated absolute (test message] The code = 704-7) system which generated this result transmitted reference range : 0 - 200 cells/u L. The reference range was not used to interpr et this result as normal/abnormal . Neutrophils (test 48.7 % code = 770-8) Lymphocytes (test 40.2 % code = 736-9) Monocytes (test 8.7 % code = 5905-5) Eosinophils (test 1.7 % code = 713-8) Basophils + RC 0.7 % (test code = 706-2) RAC (test code = Performing RAC) Organization Information: Site ID: RGA Name: [facility] Lab Address: [address] [place] [id number] Director: [facility]oto [facility] Serum or [id number] 00:00:00 Test Item Value Reference Range Interpretation Comments Thyrotropin [Units/volume] in 3.880 uIU/mL 0.450-4.500 Serum or Plasma by Detection limit <= 0.005 mIU/L (test code = 06071-2) Thyroxine (T4) free 1.40 NG/dL 0.82-1.77 [Mass/volume] in Serum or Plasma (test code = 3024-7) [facility] - Serum or [id number] 00:00:00 Test Item Value Reference Range Interpretation Comments Thyrotropin [Units/volume] in 3.880 uIU/mL 0.450-4.500 Serum or Plasma by Detection limit <= 0.005 mIU/L (test code = 06907-6) Thyroxine (T4) free 1.40 NG/dL 0.82-1.77 [Mass/volume] in Serum or Plasma (test code = 3024-7) [facility] 2000 panel - Serum or [id number] 00:00:00 Test Item Value Reference Range Interpretation Comments Glucose [Mass/volume] in Serum 97 mg/dL 65-99 or Plasma (test code = 2345-7) Urea nitrogen [Mass/volume] in 14 mg/dL 8-27 Serum or Plasma (test code = 3094-0) Creatinine [Mass/volume] in 1.00 mg/dL 0.57-1.00 Serum or Plasma (test code = 2160-0) eGFR if nonafricn AM (test 60 mL/min/1.73 >59 code = eGFR if nonafricn AM) eGFR if africn AM (test code = 69 mL/min/1.73 >59 eGFR if africn AM) Urea nitrogen/Creatinine [Mass 14 12-28 Ratio] in Serum or Plasma (test code = 3097-3) Sodium [Moles/volume] in Serum 143 mmol/L 134-144 or Plasma (test code = 2951-2) Potassium [Moles/volume] in 4.7 mmol/L 3.5-5.2 Serum or Plasma (test code = 2823-3) Chloride [Moles/volume] in 104 mmol/L 96-106 Serum or Plasma (test code = 2074-0) Carbon dioxide, total 24 mmol/L 20-29 [Moles/volume] in Serum or Plasma (test code = 2027-9) Calcium [Mass/volume] in Serum 9.6 mg/dL 8.7-10.3 or Plasma (test code = 77428-9) Protein [Mass/volume] in Serum 7.1 g/dL 6.0-8.5 or Plasma (test code = 2885-2) Albumin [Mass/volume] in Serum 4.6 g/dL 3.8-4.8 or Plasma (test code = 1751-7) Globulin [Mass/volume] in 2.5 g/dL 1.5-4.5 Serum by calculation (test code = 94704-9) Albumin/Globulin [Mass Ratio] 1.8 1.2-2.2 in Serum or Plasma (test code = 1759-0) Bilirubin.total [Mass/volume] 0.4 mg/dL 0.0-1.2 in Serum or Plasma (test code = 1974-) Alkaline phosphatase 65 IU/L 39-117 [Enzymatic activity/volume] in Serum or Plasma (test code = 6768-6) Aspartate aminotransferase 32 IU/L 0-40 [Enzymatic activity/volume] in Serum or Plasma (test code = 1920-8) Alanine aminotransferase 33 IU/L 0-32 H [Enzymatic activity/volume] in Serum or Plasma (test code = 1742-6) [facility] - Serum or [id number] 00:00:00 Test Item Value Reference Range Interpretation Comments Thyrotropin [Units/volume] in 14.330 uIU/mL 0.450-4.500 H Serum or Plasma by Detection limit <= 0.005 mIU/L (test code = 45631-8) Thyroxine (T4) free 0.91 NG/dL 0.82-1.77 [Mass/volume] in Serum or Plasma (test code = 3024-7) [facility] Differential panel - Blood 2019-09-16 00:00:00 Test Item Value Reference Range Interpretation Comments Leukocytes [#/volume] in Blood 3.2 x10e3/uL 3.4-10.8 L by Automated count (test code = 6690-2) Erythrocytes [#/volume] in 4.20 x10e6/uL 3.77-5.28 Blood by Automated count (test code = 789-8) Hemoglobin [Mass/volume] in 12.4 g/dL 11.1-15.9 Blood (test code = 718-7) Hematocrit [Volume Fraction] of 37.6 % 34.0-46.6 Blood by Automated count (test code = 4544-3) Erythrocyte mean corpuscular 90 fL 79-97 volume [Entitic volume] by Automated count (test code = 787-2) Erythrocyte mean corpuscular 29.5 pg 26.6-33.0 hemoglobin [Entitic mass] by Automated count (test code = 785-6) Erythrocyte mean corpuscular 33.0 g/dL 31.5-35.7 hemoglobin concentration [Mass/volume] by Automated count (test code = 786-4) Erythrocyte distribution width 13.7 % 11.7-15.4 [Ratio] by Automated count (test code = 788-0) Platelets [#/volume] in Blood 217 x10e3/uL 150-450 by Automated count (test code = 777-3) Neutrophils/100 leukocytes in 42 % not estab. Blood by Automated count (test code = 770-8) Lymphocytes/100 leukocytes in 46 % not estab. Blood by Automated count (test code = 736-9) Monocytes/100 leukocytes in 10 % not estab. Blood by Automated count (test code = 5905-5) Eosinophils/100 leukocytes in 2 % not estab. Blood by Automated count (test code = 713-8) Basophils/100 leukocytes in 0 % not estab. Blood by Automated count (test code = 706-2) immature cells (test code = data input clerk immature cells) Neutrophils [#/volume] in Blood 1.3 x10e3/uL 1.4-7.0 L by Automated count (test code = 751-8) Lymphocytes [#/volume] in Blood 1.5 x10e3/uL 0.7-3.1 by Automated count (test code = 731-0) Monocytes [#/volume] in Blood 0.3 x10e3/uL 0.1-0.9 by Automated count (test code = 742-7) Eosinophils [#/volume] in Blood 0.1 x10e3/uL 0.0-0.4 by Automated count (test code = 711-2) Basophils [#/volume] in Blood 0.0 x10e3/uL 0.0-0.2 by Automated count (test code = 704-7) immature granulocytes (test 0 % not estab. code = immature granulocytes) Granulocytes Immature 0.0 x10e3/uL 0.0-0.1 [#/volume] in Blood by Automated count (test code = 20015-1) Nucleated erythrocytes/100 data input clerk leukocytes [Ratio] in Blood by Automated count (test code = 11605-3) Morphology [interpretation] in data input clerk Blood Narrative (test code = 53825-3) [facility] Center[facility]em[facility] A1c/Hemoglobin.total in [id number] 00:00:00 Test Item Value Reference Range Interpretation Comments Hemoglobin A1c/Hemoglobin.total in 6.3 % 4.8-5.6 H Blood (test code = 4548-4) [facility]25-Hydroxyvitamin D [Mass/volume] in Serum or [id number] 00:00:00 Test Item Value Reference Range Interpretation Comments 25-Hydroxyvitamin D [Mass/volume] 29.6 NG/mL 30.0-100.0 L in Serum or Plasma (test code = 28357-9) [facility] Center[facility] Ab [Presence] in Serum 2019-09-16 00:00:00 Test Item Value Reference Range Interpretation Comments Nuclear Ab [Presence] in Serum (test negative negative code = 8061-4) [facility] CenterCobalamin (Vitamin B12) [Mass/volume] in Serum or [id number] 00:00:00 Test Item Value Reference Range Interpretation Comments Cobalamin (Vitamin B12) 361 pg/mL 232-1245 [Mass/volume] in Serum or Plasma (test code = 2132-9) [facility] 2000 panel - Serum or [id number] 00:00:00 Test Item Value Reference Range Interpretation Comments Glucose [Mass/volume] in Serum 97 mg/dL 65-99 or Plasma (test code = 2345-7) Urea nitrogen [Mass/volume] in 14 mg/dL 8-27 Serum or Plasma (test code = 3094-0) Creatinine [Mass/volume] in 1.00 mg/dL 0.57-1.00 Serum or Plasma (test code = 2160-0) eGFR if nonafricn AM (test 60 mL/min/1.73 >59 code = eGFR if nonafricn AM) eGFR if africn AM (test code = 69 mL/min/1.73 >59 eGFR if africn AM) Urea nitrogen/Creatinine [Mass 14 12-28 Ratio] in Serum or Plasma (test code = 3097-3) Sodium [Moles/volume] in Serum 143 mmol/L 134-144 or Plasma (test code = 2951-2) Potassium [Moles/volume] in 4.7 mmol/L 3.5-5.2 Serum or Plasma (test code = 2823-3) Chloride [Moles/volume] in 104 mmol/L 96-106 Serum or Plasma (test code = 5-0) Carbon dioxide, total 24 mmol/L 20-29 [Moles/volume] in Serum or Plasma (test code = 2027-9) Calcium [Mass/volume] in Serum 9.6 mg/dL 8.7-10.3 or Plasma (test code = 85726-4) Protein [Mass/volume] in Serum 7.1 g/dL 6.0-8.5 or Plasma (test code = 2885-2) Albumin [Mass/volume] in Serum 4.6 g/dL 3.8-4.8 or Plasma (test code = 1751-7) Globulin [Mass/volume] in 2.5 g/dL 1.5-4.5 Serum by calculation (test code = 68202-1) Albumin/Globulin [Mass Ratio] 1.8 1.2-2.2 in Serum or Plasma (test code = 1759-0) Bilirubin.total [Mass/volume] 0.4 mg/dL 0.0-1.2 in Serum or Plasma (test code = 1974-2) Alkaline phosphatase 65 IU/L 39-117 [Enzymatic activity/volume] in Serum or Plasma (test code = 6768-6) Aspartate aminotransferase 32 IU/L 0-40 [Enzymatic activity/volume] in Serum or Plasma (test code = 1920-8) Alanine aminotransferase 33 IU/L 0-32 H [Enzymatic activity/volume] in Serum or Plasma (test code = 1742-6) [facility] TSH panel - Serum or [id number] 00:00:00 Test Item Value Reference Range Interpretation Comments Thyrotropin [Units/volume] in 14.330 uIU/mL 0.450-4.500 H Serum or Plasma by Detection limit <= 0.005 mIU/L (test code = 27937-7) Thyroxine (T4) free 0.91 NG/dL 0.82-1.77 [Mass/volume] in Serum or Plasma (test code = 3024-7) [facility] Differential panel - Blood 2019-09-16 00:00:00 Test Item Value Reference Range Interpretation Comments Leukocytes [#/volume] in Blood 3.2 x10e3/uL 3.4-10.8 L by Automated count (test code = 6690-2) Erythrocytes [#/volume] in 4.20 x10e6/uL 3.77-5.28 Blood by Automated count (test code = 789-8) Hemoglobin [Mass/volume] in 12.4 g/dL 11.1-15.9 Blood (test code = 718-7) Hematocrit [Volume Fraction] of 37.6 % 34.0-46.6 Blood by Automated count (test code = 4544-3) Erythrocyte mean corpuscular 90 fL 79-97 volume [Entitic volume] by Automated count (test code = 787-2) Erythrocyte mean corpuscular 29.5 pg 26.6-33.0 hemoglobin [Entitic mass] by Automated count (test code = 785-6) Erythrocyte mean corpuscular 33.0 g/dL 31.5-35.7 hemoglobin concentration [Mass/volume] by Automated count (test code = 786-4) Erythrocyte distribution width 13.7 % 11.7-15.4 [Ratio] by Automated count (test code = 788-0) Platelets [#/volume] in Blood 217 x10e3/uL 150-450 by Automated count (test code = 777-3) Neutrophils/100 leukocytes in 42 % not estab. Blood by Automated count (test code = 770-8) Lymphocytes/100 leukocytes in 46 % not estab. Blood by Automated count (test code = 736-9) Monocytes/100 leukocytes in 10 % not estab. Blood by Automated count (test code = 5905-5) Eosinophils/100 leukocytes in 2 % not estab. Blood by Automated count (test code = 713-8) Basophils/100 leukocytes in 0 % not estab. Blood by Automated count (test code = 706-2) immature cells (test code = data input clerk immature cells) Neutrophils [#/volume] in Blood 1.3 x10e3/uL 1.4-7.0 L by Automated count (test code = 751-8) Lymphocytes [#/volume] in Blood 1.5 x10e3/uL 0.7-3.1 by Automated count (test code = 731-0) Monocytes [#/volume] in Blood 0.3 x10e3/uL 0.1-0.9 by Automated count (test code = 742-7) Eosinophils [#/volume] in Blood 0.1 x10e3/uL 0.0-0.4 by Automated count (test code = 711-2) Basophils [#/volume] in Blood 0.0 x10e3/uL 0.0-0.2 by Automated count (test code = 704-7) immature granulocytes (test 0 % not estab. code = immature granulocytes) Immature granulocytes 0.0 x10e3/uL 0.0-0.1 [#/volume] in Blood by Automated count (test code = 67384-9) Nucleated erythrocytes/100 data input clerk leukocytes [Ratio] in Blood by Automated count (test code = 56004-6) Morphology [Interpretation] in data input clerk Blood Narrative (test code = 25558-0) [facility] ProgramHemoglobin A1c/Hemoglobin.total in [id number] 00:00:00 Test Item Value Reference Range Interpretation Comments Hemoglobin A1c/Hemoglobin.total in 6.3 % 4.8-5.6 H Blood (test code = 4548-4) [facility] Arbcxym87-Leogmdkyqaoqko D2+25- Hydroxyvitamin D3 [Mass/volume] in Serum or [id number] 00:00:00 Test Item Value Reference Range Interpretation Comments 25-Hydroxyvitamin 29.6 NG/mL 30.0-100.0 L D2+25-Hydroxyvitamin D3 [Mass/volume] in Serum or Plasma (test code = 55288-2) [facility] Serum 2019-09-16 00:00:00 Test Item Value Reference Range Interpretation Comments Nuclear Ab [Presence] in Serum (test negative negative code = 8061-4) [facility] CenterCobalamin (Vitamin B12) [Mass/volume] in Serum or [id number] 00:00:00 Test Item Value Reference Range Interpretation Comments Cobalamin (Vitamin B12) 361 pg/mL 232-1245 [Mass/volume] in Serum or Plasma (test code = 2132-9) [facility]Com[facility] 2000 [facility] - Serum or [id number] 00:00:00 Test Item Value Reference Range Interpretation Comments Glucose [Mass/volume] in Serum 116 mg/dL 65-99 H or Plasma (test code = 2345-7) Urea nitrogen [Mass/volume] in 12 mg/dL 8-27 Serum or Plasma (test code = 3094-0) Creatinine [Mass/volume] in 0.95 mg/dL 0.57-1.00 Serum or Plasma (test code = 2160-0) eGFR if nonafricn AM (test 63 mL/min/1.73 >59 code = eGFR if nonafricn AM) eGFR if africn AM (test code = 73 mL/min/1.73 >59 eGFR if africn AM) Urea nitrogen/Creatinine [Mass 13 12-28 Ratio] in Serum or Plasma (test code = 3097-3) Sodium [Moles/volume] in Serum 144 mmol/L 134-144 or Plasma (test code = 2951-2) Potassium [Moles/volume] in 4.6 mmol/L 3.5-5.2 Serum or Plasma (test code = 2823-3) Chloride [Moles/volume] in 105 mmol/L 96-106 Serum or Plasma (test code = 2075-0) Carbon dioxide, total 23 mmol/L 20-29 [Moles/volume] in Serum or Plasma (test code = 2028-9) Calcium [Mass/volume] in Serum 9.5 mg/dL 8.7-10.3 or Plasma (test code = 45064-2) Protein [Mass/volume] in Serum 6.3 g/dL 6.0-8.5 or Plasma (test code = 2885-2) Albumin [Mass/volume] in Serum 4.6 g/dL 3.8-4.8 or Plasma (test code = 1751-7) Globulin [Mass/volume] in 1.7 g/dL 1.5-4.5 Serum by calculation (test code = 16659-9) Albumin/Globulin [Mass Ratio] 2.7 1.2-2.2 H in Serum or Plasma (test code = 1759-0) Bilirubin.total [Mass/volume] 0.3 mg/dL 0.0-1.2 in Serum or Plasma (test code = 1975-2) Alkaline phosphatase 66 IU/L 39-117 [Enzymatic activity/volume] in Serum or Plasma (test code = 6768-6) Aspartate aminotransferase 29 IU/L 0-40 [Enzymatic activity/volume] in Serum or Plasma (test code = 1920-8) Alanine aminotransferase 30 IU/L 0-32 [Enzymatic activity/volume] in Serum or Plasma (test code = 1742-6) [facility] - Serum or [id number] 00:00:00 Test Item Value Reference Range Interpretation Comments Thyrotropin [Units/volume] in 26.770 uIU/mL 0.450-4.500 H Serum or Plasma by Detection limit <= 0.005 mIU/L (test code = 66816-1) Thyroxine (T4) free 0.92 NG/dL 0.82-1.77 [Mass/volume] in Serum or Plasma (test code = 3024-7) [facility] CenterHemoglobin A1c/Hemoglobin.total in [id number] 00:00:00 Test Item Value Reference Range Interpretation Comments Hemoglobin A1c/Hemoglobin.total in 6.3 % 4.8-5.6 H Blood (test code = 4548-4) [facility] CenterCom[facility] 2000 panel - Serum or [id number] 00:00:00 Test Item Value Reference Range Interpretation Comments Glucose [Mass/volume] in Serum 116 mg/dL 65-99 H or Plasma (test code = 2345-7) Urea nitrogen [Mass/volume] in 12 mg/dL 8-27 Serum or Plasma (test code = 3094-0) Creatinine [Mass/volume] in 0.95 mg/dL 0.57-1.00 Serum or Plasma (test code = 2160-0) eGFR if nonafricn AM (test 63 mL/min/1.73 >59 code = eGFR if nonafricn AM) eGFR if africn AM (test code = 73 mL/min/1.73 >59 eGFR if africn AM) Urea nitrogen/Creatinine [Mass 13 12-28 Ratio] in Serum or Plasma (test code = 3097-3) Sodium [Moles/volume] in Serum 144 mmol/L 134-144 or Plasma (test code = 2951-2) Potassium [Moles/volume] in 4.6 mmol/L 3.5-5.2 Serum or Plasma (test code = 2823-3) Chloride [Moles/volume] in 105 mmol/L 96-106 Serum or Plasma (test code = 5-0) Carbon dioxide, total 23 mmol/L 20-29 [Moles/volume] in Serum or Plasma (test code = 2027-9) Calcium [Mass/volume] in Serum 9.5 mg/dL 8.7-10.3 or Plasma (test code = 07074-7) Protein [Mass/volume] in Serum 6.3 g/dL 6.0-8.5 or Plasma (test code = 2885-2) Albumin [Mass/volume] in Serum 4.6 g/dL 3.8-4.8 or Plasma (test code = 1751-7) Globulin [Mass/volume] in 1.7 g/dL 1.5-4.5 Serum by calculation (test code = 52543-7) Albumin/Globulin [Mass Ratio] 2.7 1.2-2.2 H in Serum or Plasma (test code = 1759-0) Bilirubin.total [Mass/volume] 0.3 mg/dL 0.0-1.2 in Serum or Plasma (test code = 1974-) Alkaline phosphatase 66 IU/L 39-117 [Enzymatic activity/volume] in Serum or Plasma (test code = 6768-6) Aspartate aminotransferase 29 IU/L 0-40 [Enzymatic activity/volume] in Serum or Plasma (test code = 1920-8) Alanine aminotransferase 30 IU/L 0-32 [Enzymatic activity/volume] in Serum or Plasma (test code = 1742-6) [facility] CenterFr [facility] TSH [facility] - Serum or [id number] 00:00:00 Test Item Value Reference Range Interpretation Comments Thyrotropin [Units/volume] in 26.770 uIU/mL 0.450-4.500 H Serum or Plasma by Detection limit <= 0.005 mIU/L (test code = 00953-8) Thyroxine (T4) free 0.92 NG/dL 0.82-1.77 [Mass/volume] in Serum or Plasma (test code = 3024-7) [facility] CenterHemoglobin A1c/Hemoglobin.total in [id number] 00:00:00 Test Item Value Reference Range Interpretation Comments Hemoglobin A1c/Hemoglobin.total in 6.3 % 4.8-5.6 H Blood (test code = 4548-4) [facility] CenterFr [facility] and TSH [facility] - Serum or [id number] 00:00:00 Test Item Value Reference Range Interpretation Comments Thyrotropin [Units/volume] in 6.330 uIU/mL 0.450-4.500 H Serum or Plasma by Detection limit <= 0.005 mIU/L (test code = 29835-2) Thyroxine (T4) free 0.98 NG/dL 0.82-1.77 [Mass/volume] in Serum or Plasma (test code = 3024-7) [facility] Center[facility] Auto Differential panel - Blood 2019-06-05 00:00:00 Test Item Value Reference Range Interpretation Comments Leukocytes [#/volume] in Blood 3.3 x10e3/uL 3.4-10.8 L by Automated count (test code = 6690-2) Erythrocytes [#/volume] in 4.48 x10e6/uL 3.77-5.28 Blood by Automated count (test code = 789-8) Hemoglobin [Mass/volume] in 12.7 g/dL 11.1-15.9 Blood (test code = 718-7) Hematocrit [Volume Fraction] of 40.0 % 34.0-46.6 Blood by Automated count (test code = 4544-3) Erythrocyte mean corpuscular 89 fL 79-97 volume [Entitic volume] by Automated count (test code = 787-2) Erythrocyte mean corpuscular 28.3 pg 26.6-33.0 hemoglobin [Entitic mass] by Automated count (test code = 785-6) Erythrocyte mean corpuscular 31.8 g/dL 31.5-35.7 hemoglobin concentration [Mass/volume] by Automated count (test code = 786-4) Erythrocyte distribution width 13.9 % 12.3-15.4 [Ratio] by Automated count (test code = 788-0) Platelets [#/volume] in Blood 261 x10e3/uL 150-450 by Automated count (test code = 777-3) Neutrophils/100 leukocytes in 41 % not estab. Blood by Automated count (test code = 770-8) Lymphocytes/100 leukocytes in 48 % not estab. Blood by Automated count (test code = 736-9) Monocytes/100 leukocytes in 7 % not estab. Blood by Automated count (test code = 5905-5) Eosinophils/100 leukocytes in 3 % not estab. Blood by Automated count (test code = 713-8) Basophils/100 leukocytes in 1 % not estab. Blood by Automated count (test code = 706-2) immature cells (test code = data input clerk immature cells) Neutrophils [#/volume] in Blood 1.3 x10e3/uL 1.4-7.0 L by Automated count (test code = 751-8) Lymphocytes [#/volume] in Blood 1.6 x10e3/uL 0.7-3.1 by Automated count (test code = 731-0) Monocytes [#/volume] in Blood 0.2 x10e3/uL 0.1-0.9 by Automated count (test code = 742-7) Eosinophils [#/volume] in Blood 0.1 x10e3/uL 0.0-0.4 by Automated count (test code = 711-2) Basophils [#/volume] in Blood 0.0 x10e3/uL 0.0-0.2 by Automated count (test code = 704-7) immature granulocytes (test 0 % not estab. code = immature granulocytes) Granulocytes Immature 0.0 x10e3/uL 0.0-0.1 [#/volume] in Blood by Automated count (test code = 22589-3) Nucleated erythrocytes/100 data input clerk leukocytes [Ratio] in Blood by Automated count (test code = 11324-7) Morphology [interpretation] in data input clerk Blood Narrative (test code = 01612-0) [facility] - Serum or [id number] 00:00:00 Test Item Value Reference Range Interpretation Comments Thyrotropin [Units/volume] in 6.330 uIU/mL 0.450-4.500 H Serum or Plasma by Detection limit <= 0.005 mIU/L (test code = 99774-8) Thyroxine (T4) free 0.98 NG/dL 0.82-1.77 [Mass/volume] in Serum or Plasma (test code = 3024-7) [facility] Auto Differential [facility] - Blood 2019-06-05 00:00:00 Test Item Value Reference Range Interpretation Comments Leukocytes [#/volume] in Blood 3.3 x10e3/uL 3.4-10.8 L by Automated count (test code = 6690-2) Erythrocytes [#/volume] in 4.48 x10e6/uL 3.77-5.28 Blood by Automated count (test code = 789-8) Hemoglobin [Mass/volume] in 12.7 g/dL 11.1-15.9 Blood (test code = 718-7) Hematocrit [Volume Fraction] of 40.0 % 34.0-46.6 Blood by Automated count (test code = 4544-3) Erythrocyte mean corpuscular 89 fL 79-97 volume [Entitic volume] by Automated count (test code = 787-2) Erythrocyte mean corpuscular 28.3 pg 26.6-33.0 hemoglobin [Entitic mass] by Automated count (test code = 785-6) Erythrocyte mean corpuscular 31.8 g/dL 31.5-35.7 hemoglobin concentration [Mass/volume] by Automated count (test code = 786-4) Erythrocyte distribution width 13.9 % 12.3-15.4 [Ratio] by Automated count (test code = 788-0) Platelets [#/volume] in Blood 261 x10e3/uL 150-450 by Automated count (test code = 777-3) Neutrophils/100 leukocytes in 41 % not estab. Blood by Automated count (test code = 770-8) Lymphocytes/100 leukocytes in 48 % not estab. Blood by Automated count (test code = 736-9) Monocytes/100 leukocytes in 7 % not estab. Blood by Automated count (test code = 5905-5) Eosinophils/100 leukocytes in 3 % not estab. Blood by Automated count (test code = 713-8) Basophils/100 leukocytes in 1 % not estab. Blood by Automated count (test code = 706-2) immature cells (test code = data input clerk immature cells) Neutrophils [#/volume] in Blood 1.3 x10e3/uL 1.4-7.0 L by Automated count (test code = 751-8) Lymphocytes [#/volume] in Blood 1.6 x10e3/uL 0.7-3.1 by Automated count (test code = 731-0) Monocytes [#/volume] in Blood 0.2 x10e3/uL 0.1-0.9 by Automated count (test code = 742-7) Eosinophils [#/volume] in Blood 0.1 x10e3/uL 0.0-0.4 by Automated count (test code = 711-2) Basophils [#/volume] in Blood 0.0 x10e3/uL 0.0-0.2 by Automated count (test code = 704-7) immature granulocytes (test 0 % not estab. code = immature granulocytes) Granulocytes Immature 0.0 x10e3/uL 0.0-0.1 [#/volume] in Blood by Automated count (test code = 41760-7) Nucleated erythrocytes/100 data input clerk leukocytes [Ratio] in Blood by Automated count (test code = 95086-4) Morphology [interpretation] in data input clerk Blood Narrative (test code = 59112-2) [facility] ProgramFree [facility] and TSH [facility] - Serum or [id number] 00:00:00 Test Item Value Reference Range Interpretation Comments Thyrotropin [Units/volume] in 6.330 uIU/mL 0.450-4.500 H Serum or Plasma by Detection limit <= 0.005 mIU/L (test code = 70175-7) Thyroxine (T4) free 0.98 NG/dL 0.82-1.77 [Mass/volume] in Serum or Plasma (test code = 3024-7) [facility] W Auto Differential panel - Blood 2019-06-05 00:00:00 Test Item Value Reference Range Interpretation Comments Leukocytes [#/volume] in Blood 3.3 x10e3/uL 3.4-10.8 L by Automated count (test code = 6690-2) Erythrocytes [#/volume] in 4.48 x10e6/uL 3.77-5.28 Blood by Automated count (test code = 789-8) Hemoglobin [Mass/volume] in 12.7 g/dL 11.1-15.9 Blood (test code = 718-7) Hematocrit [Volume Fraction] of 40.0 % 34.0-46.6 Blood by Automated count (test code = 4544-3) Erythrocyte mean corpuscular 89 fL 79-97 volume [Entitic volume] by Automated count (test code = 787-2) Erythrocyte mean corpuscular 28.3 pg 26.6-33.0 hemoglobin [Entitic mass] by Automated count (test code = 785-6) Erythrocyte mean corpuscular 31.8 g/dL 31.5-35.7 hemoglobin concentration [Mass/volume] by Automated count (test code = 786-4) Erythrocyte distribution width 13.9 % 12.3-15.4 [Ratio] by Automated count (test code = 788-0) Platelets [#/volume] in Blood 261 x10e3/uL 150-450 by Automated count (test code = 777-3) Neutrophils/100 leukocytes in 41 % not estab. Blood by Automated count (test code = 770-8) Lymphocytes/100 leukocytes in 48 % not estab. Blood by Automated count (test code = 736-9) Monocytes/100 leukocytes in 7 % not estab. Blood by Automated count (test code = 5905-5) Eosinophils/100 leukocytes in 3 % not estab. Blood by Automated count (test code = 713-8) Basophils/100 leukocytes in 1 % not estab. Blood by Automated count (test code = 706-2) immature cells (test code = data input clerk immature cells) Neutrophils [#/volume] in Blood 1.3 x10e3/uL 1.4-7.0 L by Automated count (test code = 751-8) Lymphocytes [#/volume] in Blood 1.6 x10e3/uL 0.7-3.1 by Automated count (test code = 731-0) Monocytes [#/volume] in Blood 0.2 x10e3/uL 0.1-0.9 by Automated count (test code = 742-7) Eosinophils [#/volume] in Blood 0.1 x10e3/uL 0.0-0.4 by Automated count (test code = 711-2) Basophils [#/volume] in Blood 0.0 x10e3/uL 0.0-0.2 by Automated count (test code = 704-7) immature granulocytes (test 0 % not estab. code = immature granulocytes) Granulocytes Immature 0.0 x10e3/uL 0.0-0.1 [#/volume] in Blood by Automated count (test code = 56870-4) Nucleated erythrocytes/100 data input clerk leukocytes [Ratio] in Blood by Automated count (test code = 17330-7) Morphology [interpretation] in data input clerk Blood Narrative (test code = 05367-0) [facility] - Serum or [id number] 00:00:00 Test Item Value Reference Range Interpretation Comments Thyrotropin [Units/volume] in 6.330 uIU/mL 0.450-4.500 H Serum or Plasma by Detection limit <= 0.005 mIU/L (test code = 78267-9) Thyroxine (T4) free 0.98 NG/dL 0.82-1.77 [Mass/volume] in Serum or Plasma (test code = 3024-7) [facility] Differential [facility] - Blood 2019-06-05 00:00:00 Test Item Value Reference Range Interpretation Comments Leukocytes [#/volume] in Blood 3.3 x10e3/uL 3.4-10.8 L by Automated count (test code = 6690-2) Erythrocytes [#/volume] in 4.48 x10e6/uL 3.77-5.28 Blood by Automated count (test code = 789-8) Hemoglobin [Mass/volume] in 12.7 g/dL 11.1-15.9 Blood (test code = 718-7) Hematocrit [Volume Fraction] of 40.0 % 34.0-46.6 Blood by Automated count (test code = 4544-3) Erythrocyte mean corpuscular 89 fL 79-97 volume [Entitic volume] by Automated count (test code = 787-2) Erythrocyte mean corpuscular 28.3 pg 26.6-33.0 hemoglobin [Entitic mass] by Automated count (test code = 785-6) Erythrocyte mean corpuscular 31.8 g/dL 31.5-35.7 hemoglobin concentration [Mass/volume] by Automated count (test code = 786-4) Erythrocyte distribution width 13.9 % 12.3-15.4 [Ratio] by Automated count (test code = 788-0) Platelets [#/volume] in Blood 261 x10e3/uL 150-450 by Automated count (test code = 777-3) Neutrophils/100 leukocytes in 41 % not estab. Blood by Automated count (test code = 770-8) Lymphocytes/100 leukocytes in 48 % not estab. Blood by Automated count (test code = 736-9) Monocytes/100 leukocytes in 7 % not estab. Blood by Automated count (test code = 5905-5) Eosinophils/100 leukocytes in 3 % not estab. Blood by Automated count (test code = 713-8) Basophils/100 leukocytes in 1 % not estab. Blood by Automated count (test code = 706-2) immature cells (test code = data input clerk immature cells) Neutrophils [#/volume] in Blood 1.3 x10e3/uL 1.4-7.0 L by Automated count (test code = 751-8) Lymphocytes [#/volume] in Blood 1.6 x10e3/uL 0.7-3.1 by Automated count (test code = 731-0) Monocytes [#/volume] in Blood 0.2 x10e3/uL 0.1-0.9 by Automated count (test code = 742-7) Eosinophils [#/volume] in Blood 0.1 x10e3/uL 0.0-0.4 by Automated count (test code = 711-2) Basophils [#/volume] in Blood 0.0 x10e3/uL 0.0-0.2 by Automated count (test code = 704-7) immature granulocytes (test 0 % not estab. code = immature granulocytes) Immature granulocytes 0.0 x10e3/uL 0.0-0.1 [#/volume] in Blood by Automated count (test code = 73688-1) Nucleated erythrocytes/100 data input clerk leukocytes [Ratio] in Blood by Automated count (test code = 87406-3) Morphology [Interpretation] in data input clerk Blood Narrative (test code = 07511-6) [facility]Com[facility] 2000 panel - Serum or [id number] 00:00:00 Test Item Value Reference Range Interpretation Comments Glucose [Mass/volume] in Serum 102 mg/dL 65-99 H or Plasma (test code = 2345-7) Urea nitrogen [Mass/volume] in 20 mg/dL 8-27 Serum or Plasma (test code = 3094-0) Creatinine [Mass/volume] in 0.83 mg/dL 0.57-1.00 Serum or Plasma (test code = 2160-0) eGFR if nonafricn AM (test 75 mL/min/1.73 >59 code = eGFR if nonafricn AM) eGFR if africn AM (test code = 87 mL/min/1.73 >59 eGFR if africn AM) Urea nitrogen/Creatinine [Mass 24 12-28 Ratio] in Serum or Plasma (test code = 3097-3) Sodium [Moles/volume] in Serum 143 mmol/L 134-144 or Plasma (test code = 2951-2) Potassium [Moles/volume] in 4.6 mmol/L 3.5-5.2 Serum or Plasma (test code = 2823-3) Chloride [Moles/volume] in 104 mmol/L 96-106 Serum or Plasma (test code = 2075-0) Carbon dioxide, total 23 mmol/L 20-29 [Moles/volume] in Serum or Plasma (test code = 2027-9) Calcium [Mass/volume] in Serum 9.4 mg/dL 8.7-10.3 or Plasma (test code = 60275-8) Protein [Mass/volume] in Serum 6.9 g/dL 6.0-8.5 or Plasma (test code = 2885-2) Albumin [Mass/volume] in Serum 4.5 g/dL 3.6-4.8 or Plasma (test code = 1751-7) Globulin [Mass/volume] in 2.4 g/dL 1.5-4.5 Serum by calculation (test code = 71000-9) Albumin/Globulin [Mass Ratio] 1.9 1.2-2.2 in Serum or Plasma (test code = 1759-0) Bilirubin.total [Mass/volume] 0.4 mg/dL 0.0-1.2 in Serum or Plasma (test code = 1975-2) Alkaline phosphatase 61 IU/L 39-117 [Enzymatic activity/volume] in Serum or Plasma (test code = 6768-6) Aspartate aminotransferase 35 IU/L 0-40 [Enzymatic activity/volume] in Serum or Plasma (test code = 1920-8) Alanine aminotransferase 34 IU/L 0-32 H [Enzymatic activity/volume] in Serum or Plasma (test code = 1742-6) [facility] W Auto Differential panel - Blood 2019-02-08 00:00:00 Test Item Value Reference Range Interpretation Comments Leukocytes [#/volume] in Blood 2.9 x10e3/uL 3.4-10.8 L by Automated count (test code = 6690-2) Erythrocytes [#/volume] in 4.39 x10e6/uL 3.77-5.28 Blood by Automated count (test code = 789-8) Hemoglobin [Mass/volume] in 12.7 g/dL 11.1-15.9 Blood (test code = 718-7) Hematocrit [Volume Fraction] of 40.9 % 34.0-46.6 Blood by Automated count (test code = 4544-3) Erythrocyte mean corpuscular 93 fL 79-97 volume [Entitic volume] by Automated count (test code = 787-2) Erythrocyte mean corpuscular 28.9 pg 26.6-33.0 hemoglobin [Entitic mass] by Automated count (test code = 785-6) Erythrocyte mean corpuscular 31.1 g/dL 31.5-35.7 L hemoglobin concentration [Mass/volume] by Automated count (test code = 786-4) Erythrocyte distribution width 13.7 % 12.3-15.4 [Ratio] by Automated count (test code = 788-0) Platelets [#/volume] in Blood 154 x10e3/uL 150-450 by Automated count (test code = 777-3) Neutrophils/100 leukocytes in 38 % not estab. Blood by Automated count (test code = 770-8) Lymphocytes/100 leukocytes in 47 % not estab. Blood by Automated count (test code = 736-9) Monocytes/100 leukocytes in 10 % not estab. Blood by Automated count (test code = 5905-5) Eosinophils/100 leukocytes in 4 % not estab. Blood by Automated count (test code = 713-8) Basophils/100 leukocytes in 1 % not estab. Blood by Automated count (test code = 706-2) immature cells (test code = data input clerk immature cells) Neutrophils [#/volume] in Blood 1.1 x10e3/uL 1.4-7.0 L by Automated count (test code = 751-8) Lymphocytes [#/volume] in Blood 1.4 x10e3/uL 0.7-3.1 by Automated count (test code = 731-0) Monocytes [#/volume] in Blood 0.3 x10e3/uL 0.1-0.9 by Automated count (test code = 742-7) Eosinophils [#/volume] in Blood 0.1 x10e3/uL 0.0-0.4 by Automated count (test code = 711-2) Basophils [#/volume] in Blood 0.0 x10e3/uL 0.0-0.2 by Automated count (test code = 704-7) immature granulocytes (test 0 % not estab. code = immature granulocytes) Granulocytes Immature 0.0 x10e3/uL 0.0-0.1 [#/volume] in Blood by Automated count (test code = 59137-4) Nucleated erythrocytes/100 data input clerk leukocytes [Ratio] in Blood by Automated count (test code = 40176-7) Morphology [interpretation] in data input clerk Blood Narrative (test code = 43188-0) [facility] [id number] 00:00:00 Test Item Value Reference Range Interpretation Comments Hepatitis A virus IgM Ab [Presence] negative negative in Serum or Plasma by Immunoassay (test code = 82974-3) Hepatitis B virus surface Ag negative negative [Presence] in Serum or Plasma by Immunoassay (test code = 5196-1) Hepatitis B virus core IgM Ab negative negative [Presence] in Serum or Plasma by Immunoassay (test code = 02650-6) Hepatitis C virus Ab Signal/Cutoff <0.1 0.0-0.9 in Serum or Plasma by Immunoassay (test code = 14774-6) [facility] CenterH[facility] A[facility]/Hemoglobin.total in [id number] 00:00:00 Test Item Value Reference Range Interpretation Comments Hemoglobin A1c/Hemoglobin.total in 6.3 % 4.8-5.6 H Blood (test code = 4548-4) [facility] CenterHep[facility] virus surface Ab [Presence] in [id number] 00:00:00 Test Item Value Reference Range Interpretation Comments Hepatitis B virus surface Ab reactive [Presence] in Serum (test code = 20511-6) [facility]25-Hydroxyvitamin D [Mass/volume] in Serum or [id number] 00:00:00 Test Item Value Reference Range Interpretation Comments 25-Hydroxyvitamin D [Mass/volume] 33.4 NG/mL 30.0-100.0 in Serum or Plasma (test code = 15466-6) [facility] 2000 [facility] - Serum or [id number] 00:00:00 Test Item Value Reference Range Interpretation Comments Glucose [Mass/volume] in Serum 102 mg/dL 65-99 H or Plasma (test code = 2345-7) Urea nitrogen [Mass/volume] in 20 mg/dL 8-27 Serum or Plasma (test code = 3094-0) Creatinine [Mass/volume] in 0.83 mg/dL 0.57-1.00 Serum or Plasma (test code = 2160-0) eGFR if nonafricn AM (test 75 mL/min/1.73 >59 code = eGFR if nonafricn AM) eGFR if africn AM (test code = 87 mL/min/1.73 >59 eGFR if africn AM) Urea nitrogen/Creatinine [Mass 24 12-28 Ratio] in Serum or Plasma (test code = 3097-3) Sodium [Moles/volume] in Serum 143 mmol/L 134-144 or Plasma (test code = 2951-2) Potassium [Moles/volume] in 4.6 mmol/L 3.5-5.2 Serum or Plasma (test code = 2823-3) Chloride [Moles/volume] in 104 mmol/L 96-106 Serum or Plasma (test code = 5-0) Carbon dioxide, total 23 mmol/L 20-29 [Moles/volume] in Serum or Plasma (test code = 2027-9) Calcium [Mass/volume] in Serum 9.4 mg/dL 8.7-10.3 or Plasma (test code = 57594-2) Protein [Mass/volume] in Serum 6.9 g/dL 6.0-8.5 or Plasma (test code = 2885-2) Albumin [Mass/volume] in Serum 4.5 g/dL 3.6-4.8 or Plasma (test code = 1751-7) Globulin [Mass/volume] in 2.4 g/dL 1.5-4.5 Serum by calculation (test code = 45769-6) Albumin/Globulin [Mass Ratio] 1.9 1.2-2.2 in Serum or Plasma (test code = 1759-0) Bilirubin.total [Mass/volume] 0.4 mg/dL 0.0-1.2 in Serum or Plasma (test code = 1974-2) Alkaline phosphatase 61 IU/L 39-117 [Enzymatic activity/volume] in Serum or Plasma (test code = 6768-6) Aspartate aminotransferase 35 IU/L 0-40 [Enzymatic activity/volume] in Serum or Plasma (test code = 1920-8) Alanine aminotransferase 34 IU/L 0-32 H [Enzymatic activity/volume] in Serum or Plasma (test code = 1742-6) [facility] - Blood 2019-02-08 00:00:00 Test Item Value Reference Range Interpretation Comments Leukocytes [#/volume] in Blood 2.9 x10e3/uL 3.4-10.8 L by Automated count (test code = 6690-2) Erythrocytes [#/volume] in 4.39 x10e6/uL 3.77-5.28 Blood by Automated count (test code = 789-8) Hemoglobin [Mass/volume] in 12.7 g/dL 11.1-15.9 Blood (test code = 718-7) Hematocrit [Volume Fraction] of 40.9 % 34.0-46.6 Blood by Automated count (test code = 4544-3) Erythrocyte mean corpuscular 93 fL 79-97 volume [Entitic volume] by Automated count (test code = 787-2) Erythrocyte mean corpuscular 28.9 pg 26.6-33.0 hemoglobin [Entitic mass] by Automated count (test code = 785-6) Erythrocyte mean corpuscular 31.1 g/dL 31.5-35.7 L hemoglobin concentration [Mass/volume] by Automated count (test code = 786-4) Erythrocyte distribution width 13.7 % 12.3-15.4 [Ratio] by Automated count (test code = 788-0) Platelets [#/volume] in Blood 154 x10e3/uL 150-450 by Automated count (test code = 777-3) Neutrophils/100 leukocytes in 38 % not estab. Blood by Automated count (test code = 770-8) Lymphocytes/100 leukocytes in 47 % not estab. Blood by Automated count (test code = 736-9) Monocytes/100 leukocytes in 10 % not estab. Blood by Automated count (test code = 5905-5) Eosinophils/100 leukocytes in 4 % not estab. Blood by Automated count (test code = 713-8) Basophils/100 leukocytes in 1 % not estab. Blood by Automated count (test code = 706-2) immature cells (test code = data input clerk immature cells) Neutrophils [#/volume] in Blood 1.1 x10e3/uL 1.4-7.0 L by Automated count (test code = 751-8) Lymphocytes [#/volume] in Blood 1.4 x10e3/uL 0.7-3.1 by Automated count (test code = 731-0) Monocytes [#/volume] in Blood 0.3 x10e3/uL 0.1-0.9 by Automated count (test code = 742-7) Eosinophils [#/volume] in Blood 0.1 x10e3/uL 0.0-0.4 by Automated count (test code = 711-2) Basophils [#/volume] in Blood 0.0 x10e3/uL 0.0-0.2 by Automated count (test code = 704-7) immature granulocytes (test 0 % not estab. code = immature granulocytes) Granulocytes Immature 0.0 x10e3/uL 0.0-0.1 [#/volume] in Blood by Automated count (test code = 67169-8) Nucleated erythrocytes/100 data input clerk leukocytes [Ratio] in Blood by Automated count (test code = 62117-9) Morphology [interpretation] in data input clerk Blood Narrative (test code = 49752-9) [facility] [id number] 00:00:00 Test Item Value Reference Range Interpretation Comments Hepatitis A virus IgM Ab [Presence] negative negative in Serum or Plasma by Immunoassay (test code = 79410-7) Hepatitis B virus surface Ag negative negative [Presence] in Serum or Plasma by Immunoassay (test code = 5196-1) Hepatitis B virus core IgM Ab negative negative [Presence] in Serum or Plasma by Immunoassay (test code = 69525-0) Hepatitis C virus Ab Signal/Cutoff <0.1 0.0-0.9 in Serum or Plasma by Immunoassay (test code = 21617-8) [facility] CenterHem[facility] A1c/Hemoglobin.total in [id number] 00:00:00 Test Item Value Reference Range Interpretation Comments Hemoglobin A1c/Hemoglobin.total in 6.3 % 4.8-5.6 H Blood (test code = 4548-4) [facility] Ab [Presence] in [id number] 00:00:00 Test Item Value Reference Range Interpretation Comments Hepatitis B virus surface Ab reactive [Presence] in Serum (test code = 26148-1) [facility]25-Hydroxyvitamin D [Mass/volume] in Serum or [id number] 00:00:00 Test Item Value Reference Range Interpretation Comments 25-Hydroxyvitamin D [Mass/volume] 33.4 NG/mL 30.0-100.0 in Serum or Plasma (test code = 35682-9) [facility] 2000 [facility] - Serum or [id number] 00:00:00 Test Item Value Reference Range Interpretation Comments Glucose [Mass/volume] in Serum 102 mg/dL 65-99 H or Plasma (test code = 2345-7) Urea nitrogen [Mass/volume] in 20 mg/dL 8-27 Serum or Plasma (test code = 3094-0) Creatinine [Mass/volume] in 0.83 mg/dL 0.57-1.00 Serum or Plasma (test code = 2160-0) eGFR if nonafricn AM (test 75 mL/min/1.73 >59 code = eGFR if nonafricn AM) eGFR if africn AM (test code = 87 mL/min/1.73 >59 eGFR if africn AM) Urea nitrogen/Creatinine [Mass 24 12-28 Ratio] in Serum or Plasma (test code = 3097-3) Sodium [Moles/volume] in Serum 143 mmol/L 134-144 or Plasma (test code = 2951-2) Potassium [Moles/volume] in 4.6 mmol/L 3.5-5.2 Serum or Plasma (test code = 2823-3) Chloride [Moles/volume] in 104 mmol/L 96-106 Serum or Plasma (test code = 2074-0) Carbon dioxide, total 23 mmol/L 20-29 [Moles/volume] in Serum or Plasma (test code = 2027-9) Calcium [Mass/volume] in Serum 9.4 mg/dL 8.7-10.3 or Plasma (test code = 97372-2) Protein [Mass/volume] in Serum 6.9 g/dL 6.0-8.5 or Plasma (test code = 2885-2) Albumin [Mass/volume] in Serum 4.5 g/dL 3.6-4.8 or Plasma (test code = 175-7) Globulin [Mass/volume] in 2.4 g/dL 1.5-4.5 Serum by calculation (test code = 23094-0) Albumin/Globulin [Mass Ratio] 1.9 1.2-2.2 in Serum or Plasma (test code = 1759-0) Bilirubin.total [Mass/volume] 0.4 mg/dL 0.0-1.2 in Serum or Plasma (test code = 1974-) Alkaline phosphatase 61 IU/L 39-117 [Enzymatic activity/volume] in Serum or Plasma (test code = 6768-6) Aspartate aminotransferase 35 IU/L 0-40 [Enzymatic activity/volume] in Serum or Plasma (test code = 1919-8) Alanine aminotransferase 34 IU/L 0-32 H [Enzymatic activity/volume] in Serum or Plasma (test code = 1742-6) [facility] W Auto Differential panel - Blood 2019-02-08 00:00:00 Test Item Value Reference Range Interpretation Comments Leukocytes [#/volume] in Blood 2.9 x10e3/uL 3.4-10.8 L by Automated count (test code = 6690-2) Erythrocytes [#/volume] in 4.39 x10e6/uL 3.77-5.28 Blood by Automated count (test code = 789-8) Hemoglobin [Mass/volume] in 12.7 g/dL 11.1-15.9 Blood (test code = 718-7) Hematocrit [Volume Fraction] of 40.9 % 34.0-46.6 Blood by Automated count (test code = 4544-3) Erythrocyte mean corpuscular 93 fL 79-97 volume [Entitic volume] by Automated count (test code = 787-2) Erythrocyte mean corpuscular 28.9 pg 26.6-33.0 hemoglobin [Entitic mass] by Automated count (test code = 785-6) Erythrocyte mean corpuscular 31.1 g/dL 31.5-35.7 L hemoglobin concentration [Mass/volume] by Automated count (test code = 786-4) Erythrocyte distribution width 13.7 % 12.3-15.4 [Ratio] by Automated count (test code = 788-0) Platelets [#/volume] in Blood 154 x10e3/uL 150-450 by Automated count (test code = 777-3) Neutrophils/100 leukocytes in 38 % not estab. Blood by Automated count (test code = 770-8) Lymphocytes/100 leukocytes in 47 % not estab. Blood by Automated count (test code = 736-9) Monocytes/100 leukocytes in 10 % not estab. Blood by Automated count (test code = 5905-5) Eosinophils/100 leukocytes in 4 % not estab. Blood by Automated count (test code = 713-8) Basophils/100 leukocytes in 1 % not estab. Blood by Automated count (test code = 706-2) immature cells (test code = data input clerk immature cells) Neutrophils [#/volume] in Blood 1.1 x10e3/uL 1.4-7.0 L by Automated count (test code = 751-8) Lymphocytes [#/volume] in Blood 1.4 x10e3/uL 0.7-3.1 by Automated count (test code = 731-0) Monocytes [#/volume] in Blood 0.3 x10e3/uL 0.1-0.9 by Automated count (test code = 742-7) Eosinophils [#/volume] in Blood 0.1 x10e3/uL 0.0-0.4 by Automated count (test code = 711-2) Basophils [#/volume] in Blood 0.0 x10e3/uL 0.0-0.2 by Automated count (test code = 704-7) immature granulocytes (test 0 % not estab. code = immature granulocytes) Immature granulocytes 0.0 x10e3/uL 0.0-0.1 [#/volume] in Blood by Automated count (test code = 03453-4) Nucleated erythrocytes/100 data input clerk leukocytes [Ratio] in Blood by Automated count (test code = 26785-2) Morphology [Interpretation] in data input clerk Blood Narrative (test code = 10858-0) [facility] 2019-02-08 00:00:00 Test Item Value Reference Range Interpretation Comments Hepatitis A virus IgM Ab [Presence] negative negative in Serum or Plasma by Immunoassay (test code = 11799-5) Hepatitis B virus surface Ag negative negative [Presence] in Serum or Plasma by Immunoassay (test code = 5196-1) Hepatitis B virus core IgM Ab negative negative [Presence] in Serum or Plasma by Immunoassay (test code = 82278-9) Hepatitis C virus Ab Signal/Cutoff <0.1 0.0-0.9 in Serum or Plasma by Immunoassay (test code = 34795-8) [facility] CenterHem[facility] A1c/Hemoglobin.total in [id number] 00:00:00 Test Item Value Reference Range Interpretation Comments Hemoglobin A1c/Hemoglobin.total in 6.3 % 4.8-5.6 H Blood (test code = 4548-4) [facility] CenterHep[facility] surface Ab [Presence] in [id number] 00:00:00 Test Item Value Reference Range Interpretation Comments Hepatitis B virus surface Ab reactive [Presence] in Serum (test code = 11024-9) [facility]25-Hydroxyvitamin D2+25- Hydroxyvitamin D3 [Mass/volume] in Serum or [id number] 00:00:00 Test Item Value Reference Range Interpretation Comments 25-Hydroxyvitamin 33.4 NG/mL 30.0-100.0 D2+25-Hydroxyvitamin D3 [Mass/volume] in Serum or Plasma (test code = 50800-8) [facility] Center[facility] TSH [facility] - Serum or [id number] 00:00:00 Test Item Value Reference Range Interpretation Comments Thyrotropin [Units/volume] in 1.000 uIU/mL 0.450-4.500 Serum or Plasma by Detection limit <= 0.005 mIU/L (test code = 26622-9) Thyroxine (T4) free 1.30 NG/dL 0.82-1.77 [Mass/volume] in Serum or Plasma (test code = 3024-7) [facility] W Auto Differential panel - Blood 2018-11-05 00:00:00 Test Item Value Reference Range Interpretation Comments Leukocytes [#/volume] in Blood 3.3 x10e3/uL 3.4-10.8 L by Automated count (test code = 6690-2) Erythrocytes [#/volume] in 4.44 x10e6/uL 3.77-5.28 Blood by Automated count (test code = 789-8) Hemoglobin [Mass/volume] in 12.7 g/dL 11.1-15.9 Blood (test code = 718-7) Hematocrit [Volume Fraction] of 39.4 % 34.0-46.6 Blood by Automated count (test code = 4544-3) Erythrocyte mean corpuscular 89 fL 79-97 volume [Entitic volume] by Automated count (test code = 787-2) Erythrocyte mean corpuscular 28.6 pg 26.6-33.0 hemoglobin [Entitic mass] by Automated count (test code = 785-6) Erythrocyte mean corpuscular 32.2 g/dL 31.5-35.7 hemoglobin concentration [Mass/volume] by Automated count (test code = 786-4) Erythrocyte distribution width 13.7 % 12.3-15.4 [Ratio] by Automated count (test code = 788-0) Platelets [#/volume] in Blood 245 x10e3/uL 150-379 by Automated count (test code = 777-3) Neutrophils/100 leukocytes in 45 % not estab. Blood by Automated count (test code = 770-8) Lymphocytes/100 leukocytes in 44 % not estab. Blood by Automated count (test code = 736-9) Monocytes/100 leukocytes in 8 % not estab. Blood by Automated count (test code = 5905-5) Eosinophils/100 leukocytes in 2 % not estab. Blood by Automated count (test code = 713-8) Basophils/100 leukocytes in 1 % not estab. Blood by Automated count (test code = 706-2) immature cells (test code = data input clerk immature cells) Neutrophils [#/volume] in Blood 1.5 x10e3/uL 1.4-7.0 by Automated count (test code = 751-8) Lymphocytes [#/volume] in Blood 1.5 x10e3/uL 0.7-3.1 by Automated count (test code = 731-0) Monocytes [#/volume] in Blood 0.3 x10e3/uL 0.1-0.9 by Automated count (test code = 742-7) Eosinophils [#/volume] in Blood 0.1 x10e3/uL 0.0-0.4 by Automated count (test code = 711-2) Basophils [#/volume] in Blood 0.0 x10e3/uL 0.0-0.2 by Automated count (test code = 704-7) immature granulocytes (test 0 % not estab. code = immature granulocytes) Granulocytes Immature 0.0 x10e3/uL 0.0-0.1 [#/volume] in Blood by Automated count (test code = 49897-5) Nucleated erythrocytes/100 data input clerk leukocytes [Ratio] in Blood by Automated count (test code = 41585-0) Morphology [interpretation] in data input clerk Blood Narrative (test code = 65008-3) [facility] 2000 [facility] - Serum or [id number] 00:00:00 Test Item Value Reference Range Interpretation Comments Glucose [Mass/volume] in Serum 118 mg/dL 65-99 H or Plasma (test code = 2345-7) Urea nitrogen [Mass/volume] in 16 mg/dL 8-27 Serum or Plasma (test code = 3094-0) Creatinine [Mass/volume] in 0.90 mg/dL 0.57-1.00 Serum or Plasma (test code = 2160-0) eGFR if nonafricn AM (test 68 mL/min/1.73 >59 code = eGFR if nonafricn AM) eGFR if africn AM (test code = 79 mL/min/1.73 >59 eGFR if africn AM) Urea nitrogen/Creatinine [Mass 18 12-28 Ratio] in Serum or Plasma (test code = 3097-3) Sodium [Moles/volume] in Serum 143 mmol/L 134-144 or Plasma (test code = 2951-2) Potassium [Moles/volume] in 4.3 mmol/L 3.5-5.2 Serum or Plasma (test code = 2823-3) Chloride [Moles/volume] in 103 mmol/L 96-106 Serum or Plasma (test code = 2074-0) Carbon dioxide, total 24 mmol/L 20-29 [Moles/volume] in Serum or Plasma (test code = 2027-9) Calcium [Mass/volume] in Serum 9.5 mg/dL 8.7-10.3 or Plasma (test code = 49296-6) Protein [Mass/volume] in Serum 7.0 g/dL 6.0-8.5 or Plasma (test code = 2885-2) Albumin [Mass/volume] in Serum 4.5 g/dL 3.6-4.8 or Plasma (test code = 1751-7) Globulin [Mass/volume] in 2.5 g/dL 1.5-4.5 Serum by calculation (test code = 62659-3) Albumin/Globulin [Mass Ratio] 1.8 1.2-2.2 in Serum or Plasma (test code = 1759-0) Bilirubin.total [Mass/volume] 0.4 mg/dL 0.0-1.2 in Serum or Plasma (test code = 1974-) Alkaline phosphatase 57 IU/L 39-117 [Enzymatic activity/volume] in Serum or Plasma (test code = 6768-6) Aspartate aminotransferase 44 IU/L 0-40 H [Enzymatic activity/volume] in Serum or Plasma (test code = 1920-8) Alanine aminotransferase 55 IU/L 0-32 H [Enzymatic activity/volume] in Serum or Plasma (test code = 1742-6) [facility]25-Hydroxyvitamin D [Mass/volume] in Serum or [id number] 00:00:00 Test Item Value Reference Range Interpretation Comments 25-Hydroxyvitamin D [Mass/volume] 29.8 NG/mL 30.0-100.0 L in Serum or Plasma (test code = 85154-1) [facility] Center[facility] TSH [facility] - Serum or [id number] 00:00:00 Test Item Value Reference Range Interpretation Comments Thyrotropin [Units/volume] in 0.821 uIU/mL 0.450-4.500 Serum or Plasma by Detection limit <= 0.005 mIU/L (test code = 43785-5) Thyroxine (T4) free 1.46 NG/dL 0.82-1.77 [Mass/volume] in Serum or Plasma (test code = 3024-7) [facility] CenterCBC [facility] Auto Differential [facility] - Blood 2018-09-12 00:00:00 Test Item Value Reference Range Interpretation Comments Leukocytes [#/volume] in Blood 3.2 x10e3/uL 3.4-10.8 L by Automated count (test code = 6690-2) Erythrocytes [#/volume] in 4.46 x10e6/uL 3.77-5.28 Blood by Automated count (test code = 789-8) Hemoglobin [Mass/volume] in 12.9 g/dL 11.1-15.9 Blood (test code = 718-7) Hematocrit [Volume Fraction] of 39.8 % 34.0-46.6 Blood by Automated count (test code = 4544-3) Erythrocyte mean corpuscular 89 fL 79-97 volume [Entitic volume] by Automated count (test code = 787-2) Erythrocyte mean corpuscular 28.9 pg 26.6-33.0 hemoglobin [Entitic mass] by Automated count (test code = 785-6) Erythrocyte mean corpuscular 32.4 g/dL 31.5-35.7 hemoglobin concentration [Mass/volume] by Automated count (test code = 786-4) Erythrocyte distribution width 13.7 % 12.3-15.4 [Ratio] by Automated count (test code = 788-0) Platelets [#/volume] in Blood 243 x10e3/uL 150-379 by Automated count (test code = 777-3) Neutrophils/100 leukocytes in 39 % not estab. Blood by Automated count (test code = 770-8) Lymphocytes/100 leukocytes in 50 % not estab. Blood by Automated count (test code = 736-9) Monocytes/100 leukocytes in 8 % not estab. Blood by Automated count (test code = 5905-5) Eosinophils/100 leukocytes in 2 % not estab. Blood by Automated count (test code = 713-8) Basophils/100 leukocytes in 1 % not estab. Blood by Automated count (test code = 706-2) immature cells (test code = data input clerk immature cells) Neutrophils [#/volume] in Blood 1.3 x10e3/uL 1.4-7.0 L by Automated count (test code = 751-8) Lymphocytes [#/volume] in Blood 1.6 x10e3/uL 0.7-3.1 by Automated count (test code = 731-0) Monocytes [#/volume] in Blood 0.3 x10e3/uL 0.1-0.9 by Automated count (test code = 742-7) Eosinophils [#/volume] in Blood 0.1 x10e3/uL 0.0-0.4 by Automated count (test code = 711-2) Basophils [#/volume] in Blood 0.0 x10e3/uL 0.0-0.2 by Automated count (test code = 704-7) immature granulocytes (test 0 % not estab. code = immature granulocytes) Granulocytes Immature 0.0 x10e3/uL 0.0-0.1 [#/volume] in Blood by Automated count (test code = 38306-0) Nucleated erythrocytes/100 data input clerk leukocytes [Ratio] in Blood by Automated count (test code = 43716-6) Morphology [interpretation] in data input clerk Blood Narrative (test code = 04965-9) [facility] 2000 [facility] - Serum or [id number] 00:00:00 Test Item Value Reference Range Interpretation Comments Glucose [Mass/volume] in Serum 110 mg/dL 65-99 H or Plasma (test code = 2345-7) Urea nitrogen [Mass/volume] in 18 mg/dL 8-27 Serum or Plasma (test code = 3094-0) Creatinine [Mass/volume] in 0.80 mg/dL 0.57-1.00 Serum or Plasma (test code = 2160-0) eGFR if nonafricn AM (test 79 mL/min/1.73 >59 code = eGFR if nonafricn AM) eGFR if africn AM (test code = 91 mL/min/1.73 >59 eGFR if africn AM) Urea nitrogen/Creatinine [Mass 23 12-28 Ratio] in Serum or Plasma (test code = 3097-3) Sodium [Moles/volume] in Serum 144 mmol/L 134-144 or Plasma (test code = 2951-2) Potassium [Moles/volume] in 4.2 mmol/L 3.5-5.2 Serum or Plasma (test code = 2823-3) Chloride [Moles/volume] in 102 mmol/L 96-106 Serum or Plasma (test code = 2074-0) Carbon dioxide, total 24 mmol/L 20-29 [Moles/volume] in Serum or Plasma (test code = 2027-9) Calcium [Mass/volume] in Serum 9.7 mg/dL 8.7-10.3 or Plasma (test code = 76754-4) Protein [Mass/volume] in Serum 6.7 g/dL 6.0-8.5 or Plasma (test code = 2885-2) Albumin [Mass/volume] in Serum 4.5 g/dL 3.6-4.8 or Plasma (test code = 1751-7) Globulin [Mass/volume] in 2.2 g/dL 1.5-4.5 Serum by calculation (test code = 27708-9) Albumin/Globulin [Mass Ratio] 2.0 1.2-2.2 in Serum or Plasma (test code = 1759-0) Bilirubin.total [Mass/volume] 0.4 mg/dL 0.0-1.2 in Serum or Plasma (test code = 1974-2) Alkaline phosphatase 57 IU/L 39-117 [Enzymatic activity/volume] in Serum or Plasma (test code = 6768-6) Aspartate aminotransferase 32 IU/L 0-40 [Enzymatic activity/volume] in Serum or Plasma (test code = 1920-8) Alanine aminotransferase 39 IU/L 0-32 H [Enzymatic activity/volume] in Serum or Plasma (test code = 1742-6) [facility], [id number] 00:00:00 Test Item Value Reference Range Interpretation Comments Cholesterol [Mass/volume] in Serum 156 mg/dL 100-199 or Plasma (test code = 2093-3) Triglyceride [Mass/volume] in Serum 126 mg/dL 0-149 or Plasma (test code = 2571-8) Cholesterol in HDL [Mass/volume] in 34 mg/dL >39 L Serum or Plasma (test code = 2085-9) Cholesterol in VLDL [Mass/volume] 25 mg/dL 5-40 in Serum or Plasma by calculation (test code = 65745-0) Cholesterol in LDL [Mass/volume] in 97 mg/dL 0-99 Serum or Plasma by calculation (test code = 16816-6) comment: (test code = comment:) data input clerk Cholesterol.total/Cholesterol.in 4.6 ratio 0.0-4.4 H HDL [Mass ratio] in Serum or Plasma (test code = 9830-1) Cholesterol in LDL/Cholesterol in 2.9 ratio 0.0-3.2 HDL [Mass Ratio] in Serum or Plasma (test code = 62466-9) [facility]25-Hydroxyvitamin D [Mass/volume] in Serum or [id number] 00:00:00 Test Item Value Reference Range Interpretation Comments 25-Hydroxyvitamin D [Mass/volume] 24.1 NG/mL 30.0-100.0 L in Serum or Plasma (test code = 88498-9) [facility] CenterHem[facility] A1c/Hemoglobin.total in [id number] 00:00:00 Test Item Value Reference Range Interpretation Comments Hemoglobin A1c/Hemoglobin.total in 6.4 % 4.8-5.6 H Blood (test code = 4548-4) [facility]ercardi[facility], [id number] 00:00:00 Test Item Value Reference Range Interpretation Comments interpretation (test code = note interpretation) pdf image (test code = pdf image) . [employer] [facility]
[2023-01-14 03:52] LABS: Absolute Lymphocytes (CBC) 1.8 K/uL (0.7-4.9); Hematocrit 38.6 % (36.0-45.0); Lymphocytes % 44.8 % (15.3-44.8); MCV 88.1 fL (80-100); MPV 9.1 fL (7.6-11.3); RBC Red Blood Cell Count 4.38 M/uL (3.86-4.86)
[2023-01-14 03:56] LABS: Specific Gravity 1.019 (1.005-1.030); Urine Bacteria <20 /HPF (<20); Urine Bilirubin NEGATIVE (Negative); Urine Blood 3+ (Negative); Urine Clarity Turbid (Clear); Urine Color Light-Yellow (Yellow); Urine Glucose NEGATIVE (Negative); Urine Mucus Slight /HPF (None Seen); Urine Protein NEGATIVE (Negative); Urine RBC >50 /HPF (None Seen); Urine Urobilinogen Normal (Normal)
[2023-01-14] MEDS ORDERED: KETOROLAC 30 MG/ML INJ ONE (03:57)
[2023-01-14] MEDS ORDERED: ONDANSETRON 4 MG/2 ML VIAL ONE (03:57)
[2023-01-14] MEDS ORDERED: NA CHLORIDE 0.9% 1,000 ML ONE (03:57)
[2023-01-14 04:11] LABS: Albumin 3.7 g/dL (3.4-5.0); Bilirubin Total 0.2 mg/dL (0.2-1.0); Potassium 4.2 mEq/L (3.5-5.1); Protein, Total 7.6 g/dL (6.4-8.2)
[2023-01-14] MEDS ORDERED: MORPHINE 4 MG/ML SYR ONE (04:48)
--- NOTE | 2023-01-14 05:13 | EDPHYS ---
Physician Documentation [facility] Name: Aydee De Leon Age: 67 yrs Sex: Female : 1955 Arrival Date: 01/14/2023 Time: 03:18 Bed 16 Private MD: ED Physician Tani Cerna HPI: 01/14 04:44 This 67 yrs old Female presents to ER via Ambulatory with complaints of Possible Kidney rt Stone. 04:44 Patient presents to the ED with about 3 days of pain to the lower abdomen that radiates rt to the right flank. Patient was seen by primary care, ordered urine, labs. Patient states that the pain is intermittent but has worsened overnight prompting her to come to the ED for further evaluation. She does report hematuria. Denies other acute complaints at this time, symptoms are moderate severity, sharp in nature, no other aggravating alleviating factors. Historical: - Home Meds: 03:40 levothyroxine 100 mcg tab 1 tab once daily [Active]; kd3 - PMHx: 03:40 graves disease; Hypertensive disorder; kd3 - Immunization history:: Adult Immunizations up to date. - Social history:: Smoking status: Patient denies any tobacco usage or history of. - Family history:: not pertinent. ROS: 04:44 Constitutional: Negative for fever, chills, and weight loss, Cardiovascular: Negative rt for chest pain, palpitations, and edema, Respiratory: Negative for shortness of breath, cough, wheezing, and pleuritic chest pain, MS/Extremity: Negative for injury and deformity, Skin: Negative for injury, rash, and discoloration, Neuro: Negative for headache, weakness, numbness, tingling, and seizure, Psych: Negative for depression, anxiety, suicide ideation, homicidal ideation, and hallucinations. 04:44 Abdomen/GI: Positive for abdominal pain, Negative for nausea and vomiting. 04:44 Back: Positive for flank pain, Negative for injury or acute deformity. 04:44 : Positive for hematuria, Negative for burning with urination. Exam: 04:44 Constitutional: This is a well developed, well nourished patient who is awake, alert, rt and in no acute distress. Head/Face: Normocephalic, atraumatic. Chest/axilla: Normal chest wall appearance and motion. Nontender with no deformity. No lesions are appreciated. Cardiovascular: Regular rate and rhythm with a normal S1 and S2. No gallops, murmurs, or rubs. Normal PMI, no JVD. No pulse deficits. Respiratory: Lungs have equal breath sounds bilaterally, clear to auscultation and percussion. No rales, rhonchi or wheezes noted. No increased work of breathing, no retractions or nasal flaring. Skin: Warm, dry with normal turgor. Normal color with no rashes, no lesions, and no evidence of cellulitis. MS/ Extremity: Pulses equal, no cyanosis. Neurovascular intact. Full, normal range of motion. Neuro: Awake and alert, GCS 15, oriented to person, place, time, and situation. Cranial nerves II-XII grossly intact. Motor strength 5/5 in all extremities. Sensory grossly intact. Cerebellar exam normal. Normal gait. Psych: Awake, alert, with orientation to person, place and time. Behavior, mood, and affect are within normal limits. 04:44 Abdomen/GI: Tenderness to the suprapubic region, no rebound, guarding, distention. Vital Signs: 03:37 BP 165 / 114; Pulse 75; Resp 18; Temp 98.1(TE); Pulse Ox 100% ; Weight 86.18 kg; Height kd3 5 ft. 6 in. ; 03:54 BP 143 / 83; Pulse 58; Resp 18; Pulse Ox 99% ; vc1 05:00 BP 177 / 85; Pulse 55; Resp 18; Pulse Ox 99% ; vc1 03:37 Body Mass Index 30.67 (86.18 kg, 167.64 cm) kd3 MDM: 03:25 Patient medically screened. rt 05:15 Differential Diagnosis Pyelonephritis, ureterolithiasis. Data reviewed: vital signs, rt nurses notes, lab test result(s), radiologic studies. I considered the following discharge prescriptions or medication management in the emergency department Medications were administered in the Emergency Department. See MAR. Independent interpretation of the following test(s) in the Emergency Department CT Scan: My interpretation is Hydroureteronephrosis seen on interpretation of the CT scan images. Care significantly affected by the following chronic conditions: Hypertension. Counseling: I had a detailed discussion with the patient and/or guardian regarding: the historical points, exam findings, and any diagnostic results supporting the discharge/admit diagnosis, lab results, radiology results, the need for outpatient follow up, to return to the emergency department if symptoms worsen or persist or if there are any questions or concerns that arise at home. Response to treatment: the patient's symptoms have resolved after treatment. 01/14 03:37 Order name: CBC with Diff; Complete Time: 04:21 rt 01/14 03:37 Order name: CMP; Complete Time: 04:21 rt 01/14 03:37 Order name: UAM; Complete Time: 04:21 rt 01/14 03:37 Order name: CT Abd/Pelvis - Without Contrast rt Administered Medications: 03:53 Drug: Ondansetron IVP 4 mg Route: IVP; Site: left antecubital; vc1 04:30 Follow up: Response: No adverse reaction vc1 03:53 Drug: NS 0.9% IV 1000 ml Route: IV; Rate: 1 bolus; Site: left antecubital; vc1 03:54 Drug: Ketorolac IVP 15 mg Route: IVP; Site: left antecubital; vc1 04:30 Follow up: Response: No adverse reaction; Marked relief of symptoms vc1 04:53 Drug: morphine IVP or IV 4 mg Route: IVP; Infused Over: 4 mins; Site: left antecubital; vc1 05:13 Follow up: Response: No adverse reaction; Marked relief of symptoms vc1 Disposition Summary: 01/14/23 05:12 Discharge Ordered Location: Home rt Problem: new rt Symptoms: are resolved rt Condition: Stable rt Diagnosis - Calculus of ureter rt Followup: rt - With: Teodoro Crump MD - When: 10 - 14 days - Reason: Discharge Instructions: - Discharge Summary Sheet rt - Kidney Stones rt Forms: - Medication Reconciliation Form rt - Thank You Letter rt - Antibiotic Education rt - Prescription Opioid Use rt - Patient Portal Instructions rt Prescriptions: - acetaminophen-codeine 300-30 mg Oral tablet - take 1 tablet by ORAL route every 6 hours; 15 tablet; Refills: 0, Product rt Selection Permitted Signatures: Dispatcher [employer] Cinthya Briceno RN RN kd3 Nirmala Gomez RN RN vc1 Tani Cerna MD MD rt
--- NOTE | 2023-01-14 05:13 | ER ---
Nurse's Notes [facility] Name: Aydee De Leon Age: 67 yrs Sex: Female : 1955 Arrival Date: 01/14/2023 Time: 03:18 Bed 16 Private MD: Diagnosis: Calculus of ureter Presentation: 01/14 03:38 Chief complaint: Patient states: I saw Dr Michelle said that i either have a kidney stone kd3 or a kidney infection on Sunday. He ran test and I was waiting on results but the pain got too bad and i couldn't wait. Coronavirus screen: Vaccine status: Patient reports receiving the 2nd dose of the covid vaccine. Ebola Screen: No symptoms or risks identified at this time. Initial Sepsis Screen: Does the patient meet any 2 criteria? No. Patient's initial sepsis screen is negative. Does the patient have a suspected source of infection? No. Patient's initial sepsis screen is negative. Risk Assessment: Do you want to hurt yourself or someone else? Patient reports no desire to harm self or others. Onset of symptoms was January 14, 2023. 03:38 Method Of Arrival: Ambulatory kd3 03:38 Acuity: CHINO 3 kd3 Triage Assessment: 03:40 General: Appears uncomfortable, Behavior is calm, cooperative. Pain: Complains of pain kd3 in right lower quadrant. GI: No deficits noted. Historical: - Home Meds: 03:40 levothyroxine 100 mcg tab 1 tab once daily [Active]; kd3 - PMHx: 03:40 graves disease; Hypertensive disorder; kd3 - Immunization history:: Adult Immunizations up to date. - Social history:: Smoking status: Patient denies any tobacco usage or history of. - Family history:: not pertinent. Screenin:12 [facility] ED Fall Risk Assessment (Adult) History of falling in the last 3 months, vc1 including since admission No falls in past 3 months (0 pts) Confusion or Disorientation No (0 pts) Intoxicated or Sedated No (0 pts) Impaired Gait No (0 pts) Mobility Assist Device Used No (0 pt) Altered Elimination No (0 pt) Score/Fall Risk Level 0 - 2 = Low Risk Oriented to surroundings, Maintained a safe environment, Educated pt \T\ family on fall prevention, incl call for assistance when getting out of bed. Abuse screen: Denies threats or abuse. Nutritional screening: No deficits noted. Tuberculosis screening: No symptoms or risk factors identified. Assessment: 05:11 Reassessment: Patient and/or family updated on plan of care and expected duration. Pain vc1 level reassessed. Patient is alert, oriented x 3, equal unlabored respirations, skin warm/dry/pink. Patient states feeling better. Patient states symptoms have improved. Vital Signs: 03:37 BP 165 / 114; Pulse 75; Resp 18; Temp 98.1(TE); Pulse Ox 100% ; Weight 86.18 kg; Height kd3 5 ft. 6 in. ; 03:54 BP 143 / 83; Pulse 58; Resp 18; Pulse Ox 99% ; vc1 05:00 BP 177 / 85; Pulse 55; Resp 18; Pulse Ox 99% ; vc1 03:37 Body Mass Index 30.67 (86.18 kg, 167.64 cm) kd3 ED Course: 03:22 Patient arrived in ED. ja2 03:22 Tani Cerna MD is Attending Physician. rt 03:30 Patient has correct armband on for positive identification. Bed in low position. Call vc1 light in reach. Pulse ox on. NIBP on. 03:39 Nirmala Gomez, BEATRIZ is Primary Nurse. vc1 03:40 Triage completed. kd3 03:40 Arm band placed on right wrist. kd3 03:42 Inserted saline lock: 20 gauge in left antecubital area, using aseptic technique. Blood vc1 collected. 03:54 CT Abd/Pelvis - Without Contrast Sent. vc1 03:54 UAM Sent. vc1 03:54 CMP Sent. vc1 03:54 CBC with Diff Sent. vc1 04:11 CT Abd/Pelvis - Without Contrast In Process Unspecified. EDMS 05:12 Teodoro Crupm MD is Referral Physician. rt 05:22 No provider procedures requiring assistance completed. IV discontinued, intact, vc1 bleeding controlled, No redness/swelling at site. Pressure dressing applied. 05:23 Provided Education on: medication and follow up with urology. vc1 Administered Medications: 03:53 Drug: Ondansetron IVP 4 mg Route: IVP; Site: left antecubital; vc1 04:30 Follow up: Response: No adverse reaction vc1 03:53 Drug: NS 0.9% IV 1000 ml Route: IV; Rate: 1 bolus; Site: left antecubital; vc1 03:54 Drug: Ketorolac IVP 15 mg Route: IVP; Site: left antecubital; vc1 04:30 Follow up: Response: No adverse reaction; Marked relief of symptoms vc1 04:53 Drug: morphine IVP or IV 4 mg Route: IVP; Infused Over: 4 mins; Site: left antecubital; vc1 05:13 Follow up: Response: No adverse reaction; Marked relief of symptoms vc1 Medication: 05:12 VIS not applicable for this client. vc1 Outcome: 05:12 Discharge ordered by . rt 05:23 Discharged to home ambulatory. vc1 05:23 Condition: good 05:23 Discharge instructions given to patient, Instructed on discharge instructions, follow up and referral plans. medication usage, Demonstrated understanding of instructions, follow-up care, medications, Prescriptions given X 1. 05:23 Patient left the ED. vc1 Signatures: Dispatcher [employer] EDMS Odalys Mariscal2 Cinthya Kuhn RN RN kd3 Nirmala Gomez RN RN vc1 Tani Cerna MD MD rt
[2023-01-14 05:28] VITALS: TEMP 98.1
[2023-01-14 05:30] VITALS: O2SAT 99
[2023-01-14 05:31] VITALS: BP 177/85
--- NOTE | 2023-01-14 13:47 | RAD REPORT ---
EXAM DESCRIPTION: CT - Abdomen Pelvis Wo Contrast - 01/14/2023 7:08 am CLINICAL HISTORY: R flank pain COMPARISON: None Available. TECHNIQUE: CT of the abdomen and pelvis without IV contrast. Evaluation of the solid organs and vasc ulature is suboptimal due to lack of IV contrast. This exam was performed according to our department al dose-optimization program, which includes automated exposure control, adjustment of the mA and/or kV according to patient size and/or use of iterative reconstruction technique. FINDINGS: Lung Bases: The visualized lung bases are clear. Bones: Multilevel endplate spondylosis and facet arthropathy. Abdomen: Liver: Hepatomegaly. Gallbladder: No calcified gallstones. Spleen, Pancreas, and Adrenal Glands: The spleen, pancreas, and adrenal glands are unremarkable. Kidneys: Right renal cyst. No follow-up imaging for this structure recommended. Moderate right hydrou reter and hydronephrosis without obstructing calculus identified. No left-sided hydronephrosis. Vasculature: The aorta and IVC have normal caliber and position. Stomach: The stomach and duodenum have normal course. Other: No free intraperitoneal air. No free fluid or lymphadenopathy. Tiny fat-containing umbilic al hernia. Pelvis: Bladder: Urinary bladder is decompressed with mild wall thickening.. Bowel: No dilated loops of large or small bowel. Scattered diverticula colon. Appendix: Normal appendix. Pelvis: Prior hysterectomy. Multiple phleboliths in the pelvis. IMPRESSION: 1. Moderate right hydroureter and hydronephrosis without obstructing calculus identifi ed. This may be related to recently passed right ureteral calculus. 2. Mild wall thickening of the urinary bladder. This could be seen with cystitis. 3. Hepatomegaly. 4. Diverticulosis without evidence of acute diverticulitis. Electronically signed by: Kehinde Wilson 01/14/2023 4:57 AM CDT Due to temporary technical issues with the PACS/Fluency reporting system, reports are being signed by the in house radiologists without review as a courtesy to insure prompt reporting. The interpreting radiologist is fully responsible for the content of the report.
== END 2023-01-14 05:23 | disposition home or self-care (01) ==
LOC: ER 03:18
DX: N20.1 Calculus of ureter (principal); I10 Essential (primary) hypertension
CPT/HCPCS: 96361; 85025; 81001; 36415; 80053; 74176; 96375; 96374; 99284; J2405; J7030